=== PATIENT | female | born 2005 | race Caucasian/White ===

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

== ENCOUNTER 2023-04-06 04:32 | Inpatient (IN) ==
[2023-04-06] MEDS ORDERED: KETOROLAC TROMETHAMINE 15 MG/ML VIAL IV STA ×2 (04:50→09:19)
[2023-04-06] MEDS ORDERED: ONDANSETRON INJ 2 MG/ML 2 ML VIAL IV STA ×2 (04:50→07:31)
[2023-04-06] MEDS ORDERED: SODIUM CHLORIDE 0.9% 1000ML 1,000 ML IV STA (04:50)
--- NOTE | 2023-04-06 05:03 | Emergency Department Note ---
Impression & Plan Left flank pain, Left lower quadrant abdominal pain, Nausea & vomiting ED Provider Note CHIEF COMPLAINT: Left upper quadrant abdominal pain, nausea and vomit HISTORY OF PRESENT ILLNESS: This 17-year-old female patient presents to the emergency department via private vehicle for evaluation of left upper quadrant abdominal pain and nausea and vomiting. The patient states that symptoms began about 3 hours prior to arrival. She was awoken from sleep by the sudden onset of the left upper quadrant abdominal pain which radiates diffusely into the back. The patient states she is scheduled to have her gallbladder out in May, but notes this pain feels different than the pain she has experienced with her gallbladder. Patient denies any recent fever. She states she has been constipated, but notes her last bowel movement was yesterday. She has not taken any pain or nausea medication. She ate a hamburger and Scottish fries for dinner last night. The patient denies any chest pain or shortness of breath. She denies vomiting blood. She states she has been vomiting yellow bile recently. She denies any drug or alcohol use. REVIEW OF SYSTEMS: A 10 system review of systems was performed with positives and pertinent negatives listed in the history of present illness. All other sy stems were reviewed and are negative. ALLERGIES: Nickel PHYSICAL EXAM: VITALS: Vitals are noted on the nurse's note and reviewed by myself. Vital signs stable. GENERAL: This is a 17-year-old female, in no acute distress, diaphoretic, well- developed well-nourished. Patient is holding an emesis bag. SKIN: The skin was without rashes, erythema, edema, or bruising. There is no tenting of the skin. Capillary refill less than 2 seconds. HEAD: Normocephalic atraumatic. EYES: Conjunctivae without injection, sclerae without icterus. NECK: Supple without nuchal rigidity. No lymphadenopathy. No JVD. HEART: Regular rate and rhythm without murmurs gallops or rubs. LUNGS: Clear to auscultation bilaterally without wheezes, rales or rhonchi. No retractions or accessory muscle use. ABDOMEN: Positive bowel sounds x 4. Normal tympanic percussion. Left upper quadrant tenderness to palpation. There is some suprapubic tenderness to palpation as well. Positive left CVA tenderness. Abdomen is otherwise soft, nontender, without masses or organomegaly. Hardy sign negative. No guarding o r rebound tenderness. MUSCULOSKELETAL: No muscle atrophy, erythema, or edema noted. Full range of m otion without joint tenderness in all extremities. No tenderness to palpation. Normal gait. Strength 5/5 throughout. NEURO: Patient was alert and oriented to person place and time. No focal neurol ogical deficits. EMERGENCY DEPARTMENT COURSE: The patient was seen and evaluated as above. IV access obtained, labs drawn. Patient was medicated with IV Toradol, Zofran, IV fluids. Labs reviewed. Mild leukocytosis of 13,000. No anemia or thrombocytopenia. Renal, hepatic function and electrolytes without significant abnormality. Lipase 15. hCG negative. Previous medical records including outside medical records were reviewed. Patient complained of persistent vomiting and notes she has responded well to IM Phenergan in the past. This was administered. CT imaging was performed due to the complaint of left flank pain preceding the nausea and vomiting and reviewed by myself and radiologist as noted. Patient was found to have a 3 mm distal left ureteral stone. Urinalysis is still pending at shift change. The patient had experienced some mild improvement in her nausea and vomiting, but the nausea and vomiting returned. She states her pain has improved. She was given IV Benadryl and Zofran as well as an additional liter of IV fluids. The patient was signed out at shift change to Nichelle Durant PA-C awaiting urinalysis to evaluate for possible concurrent infection as well as reevaluation after the third dose of antiemetics. Please see Nichelle's dictation regarding final disposition and plan of this patient. Etiologies such as appendicitis, diverticulitis, nephrolithiasis, obstruction, inflammatory bowel disease, renal colic, PUD, biliary pathology, pancreatitis, mesenteric ischemia, aortic pathology, infections, genitourinary, UTI, perforated viscus, as well as others were entertained. I attest that I have personally reviewed the patient's current medication list. Blood Pressure Screening: Patient was found to have a slightly elevated blood pressure due to circumstances. I do not believe that the patient requires hypertension monitoring. The chart was completed utilizing [employer] voice recognition software. Grammatical errors, random word insertions, pronoun errors, and incomplete sentences are an occasional consequence of this system due to software limitations, ambient noise, and hardware issues. Any formal questions or concerns about the content, text, or information contained within the body of this dictation should be directly addressed to the provider for clarification. Past Med/Surg History Medical History Abnormal cholesterol test Abnormal weight gain Acute conjunctivitis ADD (attention deficit disorder) ADHD (attention deficit hyperactivity disorder) ADHD (attention deficit hyperactivity disorder), predominantly hyperactive impulsive type Adjustment disorder with depressed mood Allergic rhinitis Alopecia Cholelithiasis Constipation Depression Exercise-induced asthma Exercise-induced bronchospasm Gastroenteritis History of COVID-19 Covid positive Fall 2020 Covid positive 04/10/22 ([place]; [facility])- symptoms at time of sore throat and chest tightness, resolved 05/06/22 ([place]; [facility]) negative Insomnia Morbid obesity Nocturnal enuresis PMS (premenstrual syndrome) Shortness of breath Stress incontinence, female Surgical History (Updated 03/30/23 @ 11:08 by Azalia Thomas RN) H/O of nasal cauterization H/O wisdom tooth extraction History of repair of ACL History of tonsillectomy and adenoidectomy Family History (Updated 03/30/23 @ 11:06 by Azalia Thomas RN) Grandmother (Maternal) Breast cancer Cancer Grandfather (Maternal) Cancer Other No family history of adverse response to anesthesia Social History Smoking Status: Current every day smoker Tobacco Type: E-cigarettes / Vaping Second Hand Exposure: No; Do You Dip or Chew Tobacco: No; Hx Alcohol Use: Yes Hx Substance Use: Yes Preferred Language: Colombian Communication Ability: Effective Pail Bailer Required: No Beliefs That Will Affect Care: None Current Living Situation: Family Feels Safe at Home: Yes Assistive Devices: None Allergies Allergies Allergy/AdvReac Type Severity Reaction Status Date / Time nickel Allergy Intermediate skin Verified 03/30/23 11:02 irritation Home Meds Home Medications Medication Instructions Recorded Confirmed albuterol sulfate 90 mcg/actuation 2 inh inhalation Q4H PRN sob 10/06/21 03/30/23 aerosol inhaler duloxetine 30 mg capsule,delayed 30 mg PO DAILY 03/10/23 03/30/23 release Previous Rx's Medication Instructions Recorded amitriptyline 25 mg tablet 25 mg PO HS #14 tabs 03/10/23 ondansetron 4 mg disintegrating 4 mg PO Q4H PRN nausea and 03/10/23 tablet vomiting 0 days #10 tabs promethazine 25 mg tablet 25 mg PO Q6H PRN nausea and 03/10/23 vomiting #10 tabs pantoprazole 40 mg tablet,delayed 40 mg PO DAILY #30 tabs 03/12/23 release Results & Data (ED) Vital Signs Vital Signs - 24 hr 04/06/23 04:39 04/06/23 05:53 Temperature 36.3 C L Temperature Source Temporal Artery Scan Pulse Rate 87 Pulse Rate [Finger] 65 Respiratory Rate 18 18 Respiratory Effort / Characteristics Non-Labored Spontaneous Respiratory Depth Normal Respiratory Pattern Regular Blood Pressure 139/84 Blood Pressure [Right Arm] 108/70 Blood Pressure Mean 102 Blood Pressure Mean [Right Arm] 82 Pulse Oximetry 97 98 Oxygen Delivery Method Room Air Room Air Sepsis Recent Fever Within 48 Hours No Sepsis New/Unexplained Change in Mental Status No Sepsis Action Taken by Nursing No Action Required Laboratory Data 04/06/23 05:08 04/06/23 05:08 Lab Results 04/06/23 04/06/23 04/06/23 Range/Units 05:08 05:08 05:08 WBC 13.71 H (4.8-10.8) K/ul RBC 4.84 (4.20-5.40) M/uL Hgb 14.0 (12.0-16.0) g/dl Hct 40.5 (37.0-47.0) % MCV 83.7 (80.0-100.0) fL MCH 28.9 (25.0-34.0) pg MCHC 34.6 (32.0-36.0) g/dL RDW Std Deviation 37.9 (36.4-46.3) fL RDW Coeff of Any 12.5 (11.5-14.5) % Plt Count 490 H (130-400) K/uL MPV 9.5 (9.4-12.4) fL Immature Gran % (Auto) 0.3 % Neut % (Auto) 54.7 % Lymph % (Auto) 33.0 % [place] % (Auto) 9.3 % Eos % (Auto) 2.3 % Baso % (Auto) 0.4 % Neut # (Auto) 7.49 H (1.40-6.50) K/uL Lymph # (Auto) 4.53 H (1.2-3.4) K/uL [place] # (Auto) 1.28 H (0.11-0.59) K/uL Eos # (Auto) 0.31 (0-0.50) K/uL Baso # (Auto) 0.06 (0-0.2) K/uL Immature Gran # (Auto) 0.04 (0.01-0.20) K/uL Sodium 137 (136-145) mmol/L Potassium 3.1 L (3.5-5.1) mmol/L Chloride 104 (98-107) mmol/L Carbon Dioxide 23 (21-32) mmol/L Anion Gap 10 (3-11) BUN 11 (6-23) mg/dl Creatinine 0.68 (0.6-1.2) mg/dl Est Cr Clr Drug Dosing 137.4 ml/min Est GFR ( Amer) 147.0 ml/min Est GFR (Non-Af Amer) 126.8 ml/min BUN/Creatinine Ratio 16.2 (10-20) Glucose 124 H (70-99(Fasting)) mg/dl Calcium 9.6 (8.6-10.3) mg/dl Total Bilirubin 0.7 (0.2-1.0) mg/dl AST 16 (13-39) U/L ALT 8 (7-52) U/L Alkaline Phosphatase 57 (34-104) U/L Troponin I High Sens 3.5 (0-14) pg/ml Total Protein 7.7 (6.0-8.3) gm/dl Albumin 4.6 (3.4-5.0) gm/dl Globulin 3.1 (2.5-4.0) gm/dl Albumin/Globulin Ratio 1.5 (0.9-2) Lipase 15 (11-82) U/L HCG, Qual Negative (Negative) Administered Medications Discontinued Medications Sodium Chloride (Nss 1000ml) 1,000 mls @ 999 mls/hr IV .Q1H1M STA Stop: 04/06/23 05:50 Last Infusion: 04/06/23 06:34 Dose: 0 mls/hr Documented By: Admin: 04/06/23 05:06 Dose: 999 mls/hr Documented By: DALI Ketorolac Tromethamine (Ketorolac Tromethamine 15 Mg/Ml Vial) 10 mg IV NOW STA Stop: 04/06/23 04:51 Last Admin: 04/06/23 05:06 Dose: 10 mg Documented By: DALI Ondansetron HCl (Ondansetron Inj 2 Mg/Ml 2 Ml Vial) 4 mg IV NOW STA Stop: 04/06/23 04:51 Last Admin: 04/06/23 05:06 Dose: 4 mg Documented By: DALI Promethazine HCl (Promethazine Hcl Inj 25 Mg/Ml 1 Ml Vial) 25 mg IM NOW STA Stop: 04/06/23 05:43 Last Admin: 04/06/23 05:51 Dose: 25 mg Documented By: DALI Imaging Data Radiologist's Impression: Abdomen/Pelvis CT 04/06/23 04:[address] WITHOUT CONTRAST CT DOSE: 1323.36 mGy.cm HISTORY: left flank pain TECHNIQUE: Multiaxial CT images of the abdomen and pelvis were performed without contrast. A dose lowering technique was utilized adhering to the principles of ALARA. COMPARISON STUDY: Abdomen and pelvis CT 03/10/2023. FINDINGS: Stable 4 mm subpleural nodule within the right lower lobe on image 14 and 3 mm nodule within the left lower lobe on image 7. These are likely benign given the patient's age. No pneumoperitoneum. No pneumatosis. No acute fractures identified. The unenhanced liver, gallbladder, pancreas, spleen, adrenal glands unremarkable. There is a 3 mm stone within the right kidney. No left renal calculi. There is mild fullness within the left renal collecting system and left ureter secondary to a 3 mm partially obstructing stone within the distal left ureter on image 290. The bladder is decompressed. The uterus and ovaries are unremarkable. No retroperitoneal or pelvic lymphadenopathy. Trace pelvic free fluid. This is likely physiologic. Suboptimal evaluation for bowel pathology due to the lack of intravenous and oral contrast. However, there is no definite bowel wall thickening or obstruction. Normal appendix. Colonic diverticulosis. No evidence for acute diverticulitis. IMPRESSION: 1. A 3 mm partially obstructing stone within the distal left ureter resulting in mild fullness within the left renal collecting system. 2. Right-sided nephrolithiasis. 3. No bowel wall thickening or obstruction. 4. Additional findings as described above. ACT 112: Negative or not required by law. Electronically signed by: Aden Lowe M.D. 04/06/2023 7:23 AM Chest X-Ray 04/06/23 04:53 XR chest 1V portable CLINICAL HISTORY: Left upper quadrant pain. COMPARISON STUDY: Chest radiograph March 12, 2023. FINDINGS: Lung volumes are normal. Lungs are clear. There is no pneumothorax or pleural effusion. Cardiac size is normal. Mediastinal contours are normal. There is no evidence for pulmonary edema. IMPRESSION: No acute cardiopulmonary findings. ACT 112: Negative or not required by law. Electronically signed by: Jimmy Womack M.D. 04/06/2023 7:25 AM Discharge Plan Visit Data Chief Complaint: Abdominal Pain Stated Complaint: ABD PAIN,VOMITING ED Provider: Deniz Yee ED Midlevel Provider: Jen Molina Discharge Problem: Left flank pain, Left lower quadrant abdominal pain, Nausea & vomiting Forms Stand Alone Forms: [facility] Prescriptions Prescriptions: No Action albuterol sulfate 90 mcg/actuation HFA aerosol inhaler 2 inh INHALATION Q4H PRN (Reason: sob) duloxetine 30 mg capsule,delayed release(DR/EC) 30 mg PO DAILY amitriptyline 25 mg tablet 25 mg PO HS Qty: 14 0RF ondansetron 4 mg tablet,disintegrating 4 mg PO Q4H PRN (Reason: nausea and vomiting) Qty: 10 0RF promethazine 25 mg tablet 25 mg PO Q6H PRN (Reason: nausea and vomiting) Qty: 10 0RF pantoprazole 40 mg tablet,delayed release (DR/EC) 40 mg PO DAILY Qty: 30 0RF Referrals Referrals: Tin Ponce MD [Primary Care Provider] -
[2023-04-06 05:23] LABS: Basophils # (auto) 0.06 K/uL (0-0.2); Basophils % (auto) 0.4 %; Eosinophils # (auto) 0.31 K/uL (0-0.50); Eosinophils % (auto) 2.3 %; Hematocrit (blood only) 40.5 % (37.0-47.0); Immature Granulocytes # (auto) 0.04 K/uL (0.01-0.20); Immature Granulocytes % (auto) 0.3 %; Lymphocytes # (auto) 4.53 K/uL (1.2-3.4); Mean Corpuscular Hemoglobin 28.9 pg (25.0-34.0); Mean Corpuscular Hgb Conc 34.6 g/dL (32.0-36.0); Mean Corpuscular Volume 83.7 fL (80.0-100.0); Mean Platelet Volume 9.5 fL (9.4-12.4); Monocytes # (auto) 1.28 K/uL (0.11-0.59); Monocytes % (auto) 9.3 %; Neutrophils # (auto) 7.49 K/uL (1.40-6.50); Neutrophils % (auto) 54.7 %; Platelet Count 490 K/uL (130-400); RDW Coefficient of Variation 12.5 % (11.5-14.5); RDW Standard Deviation 37.9 fL (36.4-46.3); Red Blood Count 4.84 M/uL (4.20-5.40); White Blood Count 13.71 K/ul (4.8-10.8)
[2023-04-06 05:35] LABS: Pregnancy Test, Serum Negative (Negative)
[2023-04-06 05:40] LABS: Albumin Globulin Ratio 1.5 (0.9-2); Albumin Level 4.6 gm/dl (3.4-5.0); BUN Creatinine Ratio 16.2 (10-20); Bilirubin,Total 0.7 mg/dl (0.2-1.0); Calcium 9.6 mg/dl (8.6-10.3); Creatinine Clr Calc Pharmacy 137.4 ml/min; Est GFR (Non-African American) 126.8 ml/min; Globulin 3.1 gm/dl (2.5-4.0); Potassium 3.1 mmol/L (3.5-5.1); Total Protein 7.7 gm/dl (6.0-8.3)
[2023-04-06] MEDS ORDERED: PROMETHAZINE HCL INJ 25 MG/ML 1 ML VIAL IM STA (05:42)
[2023-04-06 05:46] LABS: Troponin I High Sensitivity 3.5 pg/ml (0-14)
--- NOTE | 2023-04-06 07:26 | XRay Report ---
XR chest 1V portable CLINICAL HISTORY: Left upper quadrant pain. COMPARISON STUDY: Chest radiograph March 12, 2023. FINDINGS: Lung volumes are normal. Lungs are clear. There is no pneumothorax or pleural effusion. Car diac size is normal. Mediastinal contours are normal. There is no evidence for pulmonary edema. IMPRESSION: No acute cardiopulmonary findings. ACT 112: Negative or not required by law. Electronically signed by: Jimmy Womack M.D. 04/06/2023 7:25 AM
--- NOTE | 2023-04-06 07:26 | CT Scan Report ---
ABDOMEN AND PELVIS CT WITHOUT CONTRAST CT DOSE: 1323.36 mGy.cm HISTORY: left flank pain TECHNIQUE: Multiaxial CT images of the abdomen and pelvis were performed without contrast. A dose lo wering technique was utilized adhering to the principles of ALARA. COMPARISON STUDY: Abdomen and pelvis CT 03/10/2023. FINDINGS: Stable 4 mm subpleural nodule within the right lower lobe on image 14 and 3 mm nodule withi n the left lower lobe on image 7. These are likely benign given the patient's age. No pneumoperitoneu m. No pneumatosis. No acute fractures identified. The unenhanced liver, gallbladder, pancreas, spleen , adrenal glands unremarkable. There is a 3 mm stone within the right kidney. No left renal calculi. There is mild fullness within the left renal collecting system and left ureter secondary to a 3 mm pa rtially obstructing stone within the distal left ureter on image 290. The bladder is decompressed. Th e uterus and ovaries are unremarkable. No retroperitoneal or pelvic lymphadenopathy. Trace pelvic irina e fluid. This is likely physiologic. Suboptimal evaluation for bowel pathology due to the lack of int ravenous and oral contrast. However, there is no definite bowel wall thickening or obstruction. Shannan l appendix. Colonic diverticulosis. No evidence for acute diverticulitis. IMPRESSION: 1. A 3 mm partially obstructing stone within the distal left ureter resulting in mild fullness within the left renal collecting system. 2. Right-sided nephrolithiasis. 3. No bowel wall thickening or obstruction. 4. Additional findings as described above. ACT 112: Negative or not required by law. Electronically signed by: Aden Lowe M.D. 04/06/2023 7:23 AM
[2023-04-06] MEDS ORDERED: ACETAMINOPHEN 1,000 MG/100 ML VIAL IV STA (07:31)
[2023-04-06] MEDS ORDERED: SODIUM CHLORIDE 0.9% 1000ML 1,000 ML IV ONE ×2 (07:31→10:09)
[2023-04-06] MEDS ORDERED: diphenhydrAMINE 50 MG/ML VIAL IV STA (07:31)
[2023-04-06 07:37] LABS: Appearance Urine Slightly Cloudy (Clear); Bilirubin Urine Negative (Negative); Blood Urine 3+ (Negative); Color Urine Yellow; Glucose Urine UA Negative (Negative); Ketones Urine 1+ (Negative); Leukocyte Esterase Urine Negative (Negative); Nitrite Urine Negative (Negative); Protein Urine 1+ (Negative); Specific Gravity Urine >= 1.030 (1.000-1.030); Urobilinogen Urine Negative (Negative); pH Urine 5.5 (4.5-7.5)
--- NOTE | 2023-04-06 07:43 | Emergency Department Note ---
ED Visit Note Patient signed out to me at shift change by Jen Molina PA-C pending urinalysis and improvement in condition. Please see her note for full HPI, h istory, physical exam and initial work-up and treatment. Briefly, this is a 17-year-old female who presented to the emergency department last evening for left upper quadrant abdominal pain and nausea/vomiting. Labs and imaging were performed and significant for mild leukocytosis of 13. CT of the abdomen and pelvis was performed due to left flank pain on exam. This demonstrated a 3 mm partially obstructing stone within the left distal ureter with mild fullness within the renal collecting system. Patient had received Zofran, Phenergan, Toradol initially. She persisted with vomiting as well as pain and was given IV Tylenol and more Zofran at time of signout. Urinalysis returned and demonstrated some protein, ketones and blood and +1 bacteria as well as epithelial cells. This is likely consistent with contamination however urine culture was sent. Upon my reevaluation, patient continues to dry heave and have significant nausea/vomiting as well as her pain is returning. Her pain has been adequately controlled with Toradol and Tylenol therefore she was given a second dose of Toradol. She was also given a dose of Compazine for her vomiting. Given intractable vomiting as well as kidney stone with mild hydronephrosis, I did feel admission to the hospital was warranted at this time. Patient was agreeable to this. Case was discussed with hospitalist, Dr. Mosher, who gracio usly excepted patient to his service for further management. Case was also discussed with Urology MANAGER [employer]ARAGE Heidy Rodríguez for patient's kidney stone. She reviewed case and recommended a dose of IV antibiotics pending urine culture for possible concurrent infection. They will follow her as inpatient as needed. Patient was updated on all these exam findings and recommendations. She was admitted in stable condition. .
[2023-04-06 07:55] LABS: Bacteria Urine 1+ (Negative); Calcium Oxalate Crystals Urine Present (None Prsent); Mucus Urine Present (None Prsent); WBC Urine 0-5 /hpf (0-5)
[2023-04-06 07:56] LABS: RBC Urine 0-4 /hpf (0-4)
[2023-04-06 08:12] LABS: Amphetamines+Metham, Urine Neg (Neg); Barbiturates, Urine Neg (Neg); Benzodiazepine, Urine Neg (Neg); Cocaine, Urine Neg (Neg); MDMA (Ecstacy), Urine Neg (Neg); Methadone, Urine Neg (Neg); Opiate, Urine Neg (Neg); Phencyclidine, Urine Neg (Neg)
[2023-04-06] MEDS ORDERED: PROCHLORPERAZINE 1 ML IV ONE (08:53)
[2023-04-06] MEDS ORDERED: cefTRIAXone SODIUM 2,000 MG/70 ML BAG IV STA (09:26)
[2023-04-06] MEDS ORDERED: TAMSULOSIN HCL 0.4 MG CAP PO STA (09:57)
[2023-04-06 10:29] LABS: Magnesium 1.8 mg/dl (1.7-2.4)
--- NOTE | 2023-04-06 10:37 | History & Physical Report ---
Date of Service April 06, 2023 Assessment & Plan (1) Ureterolithiasis: Plan: Admission due to inability to take oral intake with history of cyclic vomiting syndrome now exacerbated by ureterolithiasis Low suspicion UA is actually infected given short duration of symptoms but antibiotics requested by urology which seems reasonable pending urine culture results, continue ceftriaxone Tamsulosin 0.4mg PO now then daily Addition 1L NSS bolus now (total 3L) then D5 half NSS + 20 meq KCl at 125ml/hr Strain all urine, stone analysis if found Consult urology Pain control with acetaminophen 1st line, toradol 2nd line morphine 3rd line Nausea control with Phenergan (2) Hypokalemia: Plan: Potassium supplementation ordered. Suspect secondary to vomiting. Mg level check. Repeat K level with AM labs. Plan VTE Prophylaxis - low risk Diet - NPO, advance diet as tolerated Disposition - admit to med/surg Admission and Anticipated Discharge Date Admission Date: April 06, 2023 History of Present Illness Chief Complaint: Left abdominal pain Primary Care Provider: Tin Ponce MD Gertrude Worthy is a 17 year old female who presents to the ER with left abdominal and flank pain. Woke up from sleeping around 2am in severity 10/10 pain last night. No radiation. Not been able to keep anything down since with intractable nausea vomiting despite multiple anti-nausea medications given in the ER. Significant history of cyclic vomiting syndrome with current workup pending with EGD and possible cholecystectomy. Never had a kidney stone previously. No dysuria, change in urine frequency, color or smell. No fever or chills. Allergies Allergy/AdvReac Type Severity Reaction Status Date / Time nickel Allergy Intermediate skin Verified 03/30/23 11:02 irritation Home Medications Medication Instructions Recorded Confirmed Type albuterol sulfate 90 mcg/actuation 2 inh inhalation Q4H PRN sob 10/06/21 04/06/23 History aerosol inhaler amitriptyline 25 mg tablet 25 mg PO HS #14 tabs 03/10/23 04/06/23 Rx duloxetine 30 mg capsule,delayed 30 mg PO DAILY 03/10/23 04/06/23 History release ondansetron 4 mg disintegrating 4 mg PO Q4H PRN nausea and 03/10/23 04/06/23 Rx tablet vomiting 0 days #10 tabs promethazine 25 mg tablet 25 mg PO Q6H PRN nausea and 03/10/23 04/06/23 Rx vomiting #10 tabs pantoprazole 40 mg tablet,delayed 40 mg PO DAILY #30 tabs 03/12/23 04/06/23 Rx release Past Med/Surg History Medical History Abnormal cholesterol test Abnormal weight gain Acute conjunctivitis ADD (attention deficit disorder) ADHD (attention deficit hyperactivity disorder) ADHD (attention deficit hyperactivity disorder), predominantly hyperactive impulsive type Adjustment disorder with depressed mood Allergic rhinitis Alopecia Cholelithiasis Constipation Depression Exercise-induced asthma Exercise-induced bronchospasm Gastroenteritis History of COVID-19 Covid positive Fall 2020 Covid positive 04/10/22 ([place]; [facility])- symptoms at time of sore throat and chest tightness, resolved 05/06/22 ([place]; [facility]) negative Insomnia Morbid obesity Nocturnal enuresis PMS (premenstrual syndrome) Shortness of breath Stress incontinence, female Surgical History (Updated 03/30/23 @ 11:08 by Azalia Thomas RN) H/O of nasal cauterization H/O wisdom tooth extraction History of repair of ACL History of tonsillectomy and adenoidectomy Family History (Updated 03/30/23 @ 11:06 by Azalia Thomas RN) Grandmother (Maternal) Breast cancer Cancer Grandfather (Maternal) Cancer Other No family history of adverse response to anesthesia Social History Smoking Status: Current every day smoker Tobacco Type: E-cigarettes / Vaping Second Hand Exposure: No; Do You Dip or Chew Tobacco: No; Hx Alcohol Use: Yes Hx Substance Use: Yes Preferred Language: Mauritian Communication Ability: Effective Roper Operator Required: No Beliefs That Will Affect Care: None Current Living Situation: Family Feels Safe at Home: Yes Assistive Devices: None Review of Systems Review of Systems: All systems reviewed & are unremarkable except as noted in HPI & below Physical Exam Constitutional: WD/WN, vitals as above Eyes: + anicteric sclerae; normal pupil size Respiratory: normal respiratory effort, lungs clear to auscultation Cardiovascular: RRR, no murmur, no edema Gastrointestinal (Abdomen): Inspection/Auscultation: abdomen normal to inspection; abdomen not distended Percussion/Palpation: + abdomen tender (left sided) and abdomen soft; no guarding and abdomen not rigid Skin: no rashes, warm and dry Neurologic: moves all extremities and awake; not confused Psychiatric: A+Ox3, euthymic affect Genitourinary: + CVA tenderness (mild left) Results & Data Results & Data Vital Signs (Past 12 Hours) Vital Signs Temp Pulse Pulse Resp BP BP Pulse Ox 04/06/23 05:53 65 18 108/70 98 04/06/23 04:39 36.3 C L 87 18 139/84 97 O2 Del Method 04/06/23 05:53 Room Air 04/06/23 04:39 Room Air Laboratory Results Abnormal lab results 04/06/23 04/06/23 04/06/23 Range/Units 05:08 05:08 06:51 WBC 13.71 H (4.8-10.8) K/ul Plt Count 490 H (130-400) K/uL Neut # (Auto) 7.49 H (1.40-6.50) K/uL Lymph # (Auto) 4.53 H (1.2-3.4) K/uL Pitt # (Auto) 1.28 H (0.11-0.59) K/uL Potassium 3.1 L (3.5-5.1) mmol/L Glucose 124 H (70-99(Fasting)) mg/dl Urine Protein 1+ H (Negative) Urine Ketones 1+ H (Negative) Urine Blood 3+ H (Negative) Ur Epithelial Cells 10-20 H (0-5) /lpf Calcium Oxalate Crystal Present A (None Prsent) Urine Bacteria 1+ H (Negative) Urine Mucus Present A (None Prsent) U Marijuana (THC) Screen (Neg) 04/06/23 Range/Units 06:51 WBC (4.8-10.8) K/ul Plt Count (130-400) K/uL Neut # (Auto) (1.40-6.50) K/uL Lymph # (Auto) (1.2-3.4) K/uL Pitt # (Auto) (0.11-0.59) K/uL Potassium (3.5-5.1) mmol/L Glucose (70-99(Fasting)) mg/dl Urine Protein (Negative) Urine Ketones (Negative) Urine Blood (Negative) Ur Epithelial Cells (0-5) /lpf Calcium Oxalate Crystal (None Prsent) Urine Bacteria (Negative) Urine Mucus (None Prsent) U Marijuana (THC) Screen Pos H (Neg) Diagnostic Findings XR chest 1V portable CLINICAL HISTORY: Left upper quadrant pain. COMPARISON STUDY: Chest radiograph March 12, 2023. FINDINGS: Lung volumes are normal. Lungs are clear. There is no pneumothorax or pleural effusion. Cardiac size is normal. Mediastinal contours are normal. There is no evidence for pulmonary edema. IMPRESSION: No acute cardiopulmonary findings. ABDOMEN AND PELVIS CT WITHOUT CONTRAST CT DOSE: 1323.36 mGy.cm HISTORY: left flank pain TECHNIQUE: Multiaxial CT images of the abdomen and pelvis were performed without contrast. A dose lowering technique was utilized adhering to the principles of ALARA. COMPARISON STUDY: Abdomen and pelvis CT 03/10/2023. FINDINGS: Stable 4 mm subpleural nodule within the right lower lobe on image 14 and 3 mm nodule within the left lower lobe on image 7. These are likely benign given the patient's age. No pneumoperitoneum. No pneumatosis. No acute fractures identified. The unenhanced liver, gallbladder, pancreas, spleen, adrenal glands unremarkable. There is a 3 mm stone within the right kidney. No left renal calculi. There is mild fullness within the left renal collecting system and left ureter secondary to a 3 mm partially obstructing stone within the distal left ureter on image 290. The bladder is decompressed. The uterus and ovaries are unremarkable. No retroperitoneal or pelvic lymphadenopathy. Trace pelvic free fluid. This is likely physiologic. Suboptimal evaluation for bowel pathology due to the lack of intravenous and oral contrast. However, there is no definite bowel wall thickening or obstruction. Normal appendix. Colonic diverticulosis. No evidence for acute diverticulitis. IMPRESSION: 1. A 3 mm partially obstructing stone within the distal left ureter resulting in mild fullness within the left renal collecting system. 2. Right-sided nephrolithiasis. 3. No bowel wall thickening or obstruction. 4. Additional findings as described above. Medications Administered ER Medications Given: NSS 1L bolus Toradol 10mg IV Ondansetron 4mg IV Diphenhydramine 25mg IV Acetaminophen 1000mg IV NSS 1L bolus Compazine 5mg IV Code Status & VTE Plan Code Status Full VTE Prophylaxis Plan VTE Prophylaxis will be ordered: Yes PG Care Time/CCT Total # of Minutes Spent Total Time Spent with Patient: Total time spent is greater than 50% in coordination of care (as documented) at patient's floor/unit and/or counseling patient: Coding Level of Care Code 14088 INT INP/OBS CARE MIN Diagnoses Ureterolithiasis N20.1 Hypokalemia E87.6
[2023-04-06] MEDS: POTASSIUM CHLORIDE / WTR 10 MEQ/100 ML PLCT IV SCH ×2 (11:30→12:25)
--- NOTE | 2023-04-06 12:10 | Urology Consultation ---
Date of Consultation April 06, 2023 Assessment & Plan (1) Left flank pain: (2) Ureterolithiasis: (3) Nausea & vomitin-year-old female with history of cyclic vomiting syndrome now exacerbated by left distal ureteral stone admitted for intractable nausea and vomiting. She is afebrile and hemodynamically stable. Labs showWBC 13.71, normal creatinine. Urinalysis showed 1+ protein, 1+ ketones, 3+ blood, 0-4 RBC, 0-5 WBC, 10-20 epithelials, calcium oxalate crystals present and 1+ bacteria. Urine culture is pendingrecommend initiating broad-spectrum antibiotics and follow sensitivity data. CT independently reviewed and shows a 3 mm partially obstructing stone within the distal left ureter resulting in mild fullness within the left renal collecting system; right sided nephrolithiasis. We discussed options for stone management including left ureteral stent placement during admission versus trial of passage/medical expulsion therapy versus outpatient surgical options if symptoms are able to be controlled. We discussed that she has a decent probability of passing her stone spontaneously given size and location. Ureteral stents were discussed in detail. After discussion, patient would like to do a trial of passage. Okay to resume diet/oral fluids today. Recommend tamsulosin, IV fluids, oral hydration today as able, prn analgesia and anti-emetics. Strain all urine. Make NPO at midnight to reassess. Urology will follow, please consult our service urgently if patient becomes febrile or acute changes in status. History of Present Illness Reason for Consultation: ureterolithiasis Requesting Physician: Dr. Mosher Attending Physician: Dr. Mosher History of Present Illness This is a 17-year-old female with past medical history of ADHD, obesity, cyclical vomiting syndrome, and cholelithiasis who presented to the emergency department today for evaluation of abdominal pain, nausea and vomiting. On arrival, she was afebrile and hemodynamically stable. Lab work showed WBC 13.71, hemoglobin 14.0, creatinine 0.[address] abdomen and pelvis without contrast independently reviewed and notable for a 3 mm partially obstructing stone within the left distal ureter resulting in mild fullness within the left renal collecting system; right-sided nonobstructing nephrolithiasis. She was treated with IV fluids, ketorolac, ondansetron and promethazine in the emergency department. She was admitted for intractable nausea/vomiting despite multiple antinausea medications given in the ER. She has history of cyclic vomiting syndrome pending work-up with EGD and possible cholecystectomy. Patient seen and examined in the emergency department. She is awake and resting in litter, no apparent distress. Her grandmother present at bedside. She reports her left flank pain has improved since arrival, currently rated at 6/10 pain. Continues to have nausea and vomiting. Had episode of dry heaves during our interview. No dysuria or hematuria. Denies prior stone history. Family history of stonesfather. Allergies Allergy/AdvReac Type Severity Reaction Status Date / Time nickel Allergy Intermediate skin Verified 03/30/23 11:02 irritation Home Medications Medication Instructions Recorded Confirmed Type albuterol sulfate 90 mcg/actuation 2 inh inhalation Q4H PRN sob 10/06/21 04/06/23 History aerosol inhaler amitriptyline 25 mg tablet 25 mg PO HS #14 tabs 03/10/23 04/06/23 Rx duloxetine 30 mg capsule,delayed 30 mg PO DAILY 03/10/23 04/06/23 History release ondansetron 4 mg disintegrating 4 mg PO Q4H PRN nausea and 03/10/23 04/06/23 Rx tablet vomiting 0 days #10 tabs promethazine 25 mg tablet 25 mg PO Q6H PRN nausea and 03/10/23 04/06/23 Rx vomiting #10 tabs pantoprazole 40 mg tablet,delayed 40 mg PO DAILY #30 tabs 03/12/23 04/06/23 Rx release Patient History Medical History Abnormal cholesterol test Abnormal weight gain Acute conjunctivitis ADD (attention deficit disorder) ADHD (attention deficit hyperactivity disorder) ADHD (attention deficit hyperactivity disorder), predominantly hyperactive impulsive type Adjustment disorder with depressed mood Allergic rhinitis Alopecia Cholelithiasis Constipation Depression Exercise-induced asthma Exercise-induced bronchospasm Gastroenteritis History of COVID-19 Covid positive Fall 2020 Covid positive 04/10/22 ([place]; [facility])- symptoms at time of sore throat and chest tightness, resolved 05/06/22 ([place]; [facility]) negative Insomnia Morbid obesity Nocturnal enuresis PMS (premenstrual syndrome) Shortness of breath Stress incontinence, female Surgical History H/O of nasal cauterization H/O wisdom tooth extraction History of repair of ACL History of tonsillectomy and adenoidectomy Family History Grandmother (Maternal) Breast cancer Cancer Grandfather (Maternal) Cancer Other No family history of adverse response to anesthesia Social History Smoking Status: Current every day smoker Tobacco Type: E-cigarettes / Vaping Second Hand Exposure: No; Do You Dip or Chew Tobacco: No; Hx Alcohol Use: Yes Hx Substance Use: Yes Preferred Language: Kuwaiti Communication Ability: Effective Cork Sorter Required: No Beliefs That Will Affect Care: None Current Living Situation: Family Feels Safe at Home: Yes Assistive Devices: None Review of Systems Review of Systems: All systems reviewed & are unremarkable except as noted in HPI & below Physical Exam Constitutional: well developed and well nourished; no acute distress, not ill appearing and + uncomfortable Neck: normal visual inspection Respiratory: normal respiratory effort and able to speak in complete sentences; no respiratory distress and no labored breathing Cardiovascular: Extremities: no pedal edema Gastrointestinal (Abdomen): Inspection/Auscultation: abdomen normal to inspection; abdomen not distended Musculoskeletal: Head/Neck/Chest: normocephalic Neurologic: moves all extremities and awake Psychiatric: Orientation: alert and oriented x 3 Genitourinary: no CVA tenderness Results & Data Vital Signs (Past 12 Hours) Vital Signs Temp Pulse Pulse Resp BP BP Pulse Ox 04/06/23 05:53 65 18 108/70 98 04/06/23 04:39 36.3 C L 87 18 139/84 97 O2 Del Method 04/06/23 05:53 Room Air 04/06/23 04:39 Room Air PG Care Time/CCT Total # of Minutes Spent Total Time Spent with Patient: Total time spent is greater than 50% in coordination of care (as documented) at patient's floor/unit and/or counseling patient: Coding Level of Care Code 68839 OFFICE CONSULT LVL 40M Diagnoses Left flank pain R10.9 Ureterolithiasis N20.1 Nausea & vomiting R11.2
[2023-04-06] MEDS ORDERED: MoRPHine SULFATE 4 MG/ML 1 ML CARP\\VIAL IV PRN (13:28)
[2023-04-06] MEDS ORDERED: ACETAMINOPHEN 1,000 MG/100 ML VIAL IV PRN (13:28)
[2023-04-06] MEDS: D5W AND 1/2NSS + 20MEQ KCL 20 MEQ/1,000 ML BAG IV SCH ×2 (14:27→22:41)
[2023-04-06] MEDS: PANTOprazole 40 MG in SYRINGE 0 ML IV SCH (14:27)
[2023-04-06] MEDS: PROMETHAZINE HCL 25 MG in SODIUM CHLORIDE 0.9% 50 ML IV PRN ×2 (17:32→17:33)
[2023-04-06] MEDS: KETOROLAC TROMETHAMINE 15 MG/ML VIAL IV PRN (20:02)
[2023-04-06] MEDS ORDERED: AMITRIPTYLINE HCL 25 MG TAB PO SCH (21:00)
[2023-04-07] MEDS: PROMETHAZINE HCL 25 MG in SODIUM CHLORIDE 0.9% 50 ML IV PRN ×2 (02:56→09:13)
[2023-04-07] MEDS: D5W AND 1/2NSS + 20MEQ KCL 20 MEQ/1,000 ML BAG IV SCH (07:07)
[2023-04-07 07:35] LABS: Basophils # (auto) 0.02 K/uL (0-0.2); Basophils % (auto) 0.3 %; Eosinophils # (auto) 0.06 K/uL (0-0.50); Eosinophils % (auto) 0.8 %; Hematocrit (blood only) 35.4 % (37.0-47.0); Hemoglobin 11.9 g/dl (12.0-16.0); Immature Granulocytes # (auto) 0.02 K/uL (0.01-0.20); Immature Granulocytes % (auto) 0.3 %; Lymphocytes # (auto) 2.83 K/uL (1.2-3.4); Lymphocytes % (auto) 36.9 %; Mean Corpuscular Hemoglobin 28.8 pg (25.0-34.0); Mean Corpuscular Hgb Conc 33.6 g/dL (32.0-36.0); Mean Corpuscular Volume 85.7 fL (80.0-100.0); Mean Platelet Volume 9.7 fL (9.4-12.4); Monocytes % (auto) 9.1 %; Neutrophils # (auto) 4.04 K/uL (1.40-6.50); Neutrophils % (auto) 52.6 %; Platelet Count 304 K/uL (130-400); RDW Coefficient of Variation 12.6 % (11.5-14.5); RDW Standard Deviation 39.4 fL (36.4-46.3); Red Blood Count 4.13 M/uL (4.20-5.40); White Blood Count 7.67 K/ul (4.8-10.8)
[2023-04-07 07:49] LABS: Anion Gap 5 (3-11); BUN Creatinine Ratio 8.9 (10-20); Blood Urea Nitrogen 5 mg/dl (6-23); Calcium 8.8 mg/dl (8.6-10.3); Carbon Dioxide 25 mmol/L (21-32); Chloride 109 mmol/L (98-107); Creatinine Clr Calc Pharmacy 168.4 ml/min; Est GFR (African American) > 150.0 ml/min; Est GFR (Non-African American) 135.2 ml/min; Glucose 95 mg/dl (70-99(Fasting)); Potassium 3.5 mmol/L (3.5-5.1); Sodium 139 mmol/L (136-145)
--- NOTE | 2023-04-07 08:55 | Urology Progress Note ---
Date of Service April 07, 2023 Assessment & Plan (1) Ureterolithiasis: Plan: We reviewed the stone on her CT scan and that although it is small enough that it can likely pass spontaneously. She is still having pain requiring IV medications and severe nausea. We discussed options including ongoing trial of passage or surgical intervention with ureteroscopy, stone extraction and stent placement. We reviewed risks and benefits of each option. Regarding the surge ry, we specifically discussed risk of bleeding, infection, injury to the urinary tract, need for additional procedures. She expressed understanding and after discussion with her family, would like to proceed with surgery. Admission and Anticipated Discharge Date Admission Date: April 06, 2023 Subjective Feeling okay this morning, pain has improved from 9/10 to 5/10 -she reports still needing IV pain medication with this Still having some nausea requiring medication Denies fevers or chills Denies passage of the stone overnight Urine culture still pending Physical Exam Physical Exam: Well-appearing, NAD Results & Data Vital Signs (Past 12 Hours) Vital Signs Temp Pulse Resp BP Pulse Ox O2 Del Method 04/07/23 07:26 36.7 C 77 18 102/62 99 Room Air 04/06/23 22:30 37.1 C 75 17 100/63 98 Room Air PG Care Time/CCT Total # of Minutes Spent Total Time Spent with Patient: Total time spent is greater than 50% in coordination of care (as documented) at patient's floor/unit and/or counseling patient: Coding Level of Care Code 37130 SUB INP/OBS CARE 2/35MIN Diagnoses Ureterolithiasis N20.1
[2023-04-07] MEDS ORDERED: TAMSULOSIN HCL 0.4 MG CAP PO SCH (09:00)
[2023-04-07] MEDS ORDERED: DULoxetine HCL 30 MG CAP PO SCH (09:00)
[2023-04-07] MEDS ORDERED: cefTRIAXone SODIUM 2,000 MG in DEXTROSE 5% 50 ML IV SCH (09:00)
--- NOTE | 2023-04-07 09:22 | Anesthesiology Consultation ---
Date of Service April 07, 2023 Assessment & Plan Chart Review Chart Review: Acceptable Risk for Surgery and Patient NOT seen in Pre Admission Testing Consults Requested none ASA [id number] Proposed Anesthesia Anesthesia Type: General History Height/Weight Height: 5 ft 1 in Weight: 93.3 kg Allergies Allergy/AdvReac Type Severity Reaction Status Date / Time nickel Allergy Intermediate skin Verified 03/30/23 11:02 irritation Medications Home Medications Medication Instructions Recorded Confirmed Last Taken albuterol sulfate 90 mcg/actuation 2 inh inhalation Q4H PRN sob 10/06/21 04/06/23 03/07/23 aerosol inhaler amitriptyline 25 mg tablet 25 mg PO HS #14 tabs 03/10/23 04/06/23 04/05/23 duloxetine 30 mg capsule,delayed 30 mg PO DAILY 03/10/23 04/06/23 04/05/23 release ondansetron 4 mg disintegrating 4 mg PO Q4H PRN nausea and 03/10/23 04/06/23 04/05/23 tablet vomiting 0 days #10 tabs promethazine 25 mg tablet 25 mg PO Q6H PRN nausea and 03/10/23 04/06/23 04/05/23 vomiting #10 tabs pantoprazole 40 mg tablet,delayed 40 mg PO DAILY #30 tabs 03/12/23 04/06/23 04/05/23 release Active Medications Generic Name Dose Route Start Last Admin Trade Name Freq PRN Reason Stop Dose Admin Amitriptyline HCl 25 mg 04/06/23 21:00 04/06/23 19:59 Amitriptyline Hcl 25 Mg Tab PO 05/06/23 20:59 25 mg HS MARIA LUISA Administration Duloxetine HCl 30 mg 04/07/23 09:00 04/07/23 07:08 Duloxetine Hcl 30 Mg Cap PO 05/07/23 08:59 30 mg DAILY MARIA LUISA Administration Promethazine HCl 25 mg/ Sodium 51 mls @ 204 mls/hr 04/06/23 13:28 04/07/23 09:13 Chloride IV 05/06/23 13:27 204 mls/hr Q6H PRN Administration Nausea And Vomiting Ceftriaxone Sodium 2,000 mg/ 70 mls @ 100 mls/hr 04/07/23 09:00 04/07/23 07:53 Dextrose IV 04/12/23 08:59 Infused QAM MARIA LUISA Infusion Protocol Potassium Chloride/Dextrose/Sod Cl 20 meq in 1,000 mls @ 125 mls/hr 04/06/23 14:30 04/07/23 07:07 D5w And 1/2nss + 20meq Kcl IV 05/06/23 14:29 125 mls/hr .Q8H MARIA LUISA Administration Protocol Pantoprazole Sodium 40 mg/ 10 mls @ 5 mls/min 04/06/23 14:15 04/06/23 14:27 Syringe IV 05/06/23 14:14 5 mls/min DAILY@1100 MARIA LUISA Administration Ketorolac Tromethamine 15 mg 04/06/23 13:28 04/06/23 20:02 Ketorolac Tromethamine 15 Mg/Ml Vial IV 04/11/23 13:27 15 mg Q6H PRN Administration Pain Tamsulosin HCl 0.4 mg 04/07/23 09:00 04/07/23 07:08 Tamsulosin Hcl 0.4 Mg Cap PO 05/07/23 08:59 0.4 mg QAM MARIA LUISA Administration NPO Date Last Intake of Fluids: 04/07/23 Time Last Intake of Fluids: 05:30 Last Intake of Fluids Comment: meds w/sips water Date Last Intake of Solids: 04/05/23 Time Last Intake of Solids: 21:00 Past Medical History Medical History Abnormal cholesterol test Abnormal weight gain Acute conjunctivitis ADD (attention deficit disorder) ADHD (attention deficit hyperactivity disorder) ADHD (attention deficit hyperactivity disorder), predominantly hyperactive impulsive type Adjustment disorder with depressed mood Allergic rhinitis Alopecia Cholelithiasis Constipation Depression Exercise-induced asthma Exercise-induced bronchospasm Gastroenteritis History of COVID-19 Covid positive Fall 2020 Covid positive 04/10/22 ([place]; [facility])- symptoms at time of sore throat and chest tightness, resolved 05/06/22 ([place]; [facility]) negative Insomnia Morbid obesity Nocturnal enuresis PMS (premenstrual syndrome) Shortness of breath Stress incontinence, female Exercise / Class Metabolic Activity II 4-5 Yardwork/Stairs/Walk up hill Past Family History Family History Grandmother (Maternal) Breast cancer Cancer Grandfather (Maternal) Cancer Other No family history of adverse response to anesthesia Past Surgical History Surgical History H/O of nasal cauterization H/O wisdom tooth extraction History of repair of ACL History of tonsillectomy and adenoidectomy Past Anesthesia History No Hx of Anesthesia Complications and No Family Hx of Anesthesia Complications History of PONV No Hx of PONV and No Hx of Motion Sickness Social History Smoking Status: Current some day smoker tobacco type: e-cigarettes Do You Dip or Chew Tobacco: No Hx Alcohol Use: No alcohol intake frequency: holidays/special occasions only Hx Substance Use: Yes substance use type: marijuana Last Used Substance: Days (ago) Last Used Substance Other:: 2 days ago Physical Exam Vital Signs Last Vital Signs Temp 36.7 C 04/07/23 07:26 Pulse 77 04/07/23 07:26 Resp 18 04/07/23 07:26 BP 102/62 04/07/23 07:26 Pulse Ox 99 04/07/23 07:26 O2 Del Method Room Air 04/07/23 07:26 Testing Laboratory Results 04/07/23 07:11 04/07/23 07:11 Urine Color Yellow 04/06/23 06:51 Urine Appearance Slightly Cloudy (Clear) 04/06/23 06:51 Urine pH 5.5 (4.5-7.5) 04/06/23 06:51 Ur Specific [place] >= 1.030 (1.000-1.030) 04/06/23 06:51 Urine Protein 1+ (Negative) H 04/06/23 06:51 Urine Glucose (UA) Negative (Negative) 04/06/23 06:51 Urine Ketones 1+ (Negative) H 04/06/23 06:51 Urine Nitrite Negative (Negative) 04/06/23 06:51 Ur Leukocyte Esterase Negative (Negative) 04/06/23 06:51 Urine RBC 0-4 /hpf (0-4) 04/06/23 06:51 Urine WBC 0-5 /hpf (0-5) 04/06/23 06:51 Ur Epithelial Cells 10-20 /lpf (0-5) H 04/06/23 06:51 Electrocardiogram Date: 02/06/22 Findings: + NSR @ (@ 68 w/ marked SA) Chest X-Ray Date: 04/06/23 Findings: + NAD
[2023-04-07] MEDS ORDERED: fentaNYL citrate PF 100 MCG/2 ML VIAL IV PRN (09:59)
[2023-04-07] MEDS ORDERED: PROMETHAZINE HCL 12.5 MG in SODIUM CHLORIDE 0.9% 50 ML IV PRN (09:59)
[2023-04-07] MEDS ORDERED: LABETALOL HCL IV 5 MG/ML 20ML IV PRN (09:59)
[2023-04-07] MEDS ORDERED: FLUMAZENIL 0.1 MG/1 ML 10 ML VIAL IV PRN (09:59)
[2023-04-07] MEDS ORDERED: ATROPINE SULFATE 0.1 MG/ML 10ML SYR IV PRN (09:59)
[2023-04-07] MEDS ORDERED: ePHEDrine sulfate 50 MG/ML AMP IV PRN (09:59)
[2023-04-07] MEDS ORDERED: NALOXONE HCL 0.4 MG/1 ML VIAL/CARP IV PRN (09:59)
[2023-04-07] MEDS ORDERED: ONDANSETRON INJ 2 MG/ML 2 ML VIAL IV PRN (09:59)
[2023-04-07] MEDS ORDERED: DIATRIZOATE MEGLUMINE 30% 100ML VIAL INSTIL ONE (10:02)
[2023-04-07] MEDS ORDERED: PROPOFOL IV EMULSION 10 MG/ML 20 ML VIAL IV ONE ×2 (10:02→10:28)
[2023-04-07] MEDS ORDERED: fentaNYL citrate PF 100 MCG/2 ML VIAL ONE (10:02)
[2023-04-07] MEDS ORDERED: MIDAZOLAM HCL 1 MG/ML 2ML VIAL ONE (10:03)
--- NOTE | 2023-04-07 10:28 | Hospitalist Progress Note ---
Date of Service April 07, 2023 Assessment & Plan (1) Ureterolithiasis: Plan: Pt is a 17 yo female with PMH of cholelithiasis, ADHD, depression, and asthma presenting due to nausea/vomiting and abdominal pain. Left ureterolithiasis - CTAP: 3mm partially obstructing stone in distal left ureter, right sided stones - per uro, ceftriaxone ppx, pt to undergo stent placement today - continue tamsulosin 0.4mg daily - Pain control with acetaminophen, toradol, and morphine PRN - Nausea control with phenergan PRN Hypokalemia - suspect secondary to vomiting - present on admission- supplemented- recheck WNL - recheck with AM labs VTE ppx: low risk Diet: NPO Code: full Dispo: med/surg (2) Hypokalemia: Admission and Anticipated Discharge Date Admission Date: April 06, 2023 Results & Data Results & Data Vital Signs (Past 12 Hours) Vital Signs Temp Pulse Resp BP Pulse Ox O2 Del Method 04/07/23 07:26 36.7 C 77 18 102/62 99 Room Air 04/06/23 22:30 37.1 C 75 17 100/63 98 Room Air Resident Activity Tracking Resident Involvement: Resident Care Provided Care Provided: Adult Hospital Medicine
--- NOTE | 2023-04-07 10:51 | Operative Report ---
PG Post Operative Report Pre & Post Diagnosis Operation Date: 04/07/23 09:40 Pre-Op Diagnosis: Ureterolithiasis Post-Op Diagnosis: Ureterolithiasis I identified the patient and participated in the time-out.: Yes Procedure Operation Date: 04/07/23 09:40 Actual Procedures p Cystoscopy, Ureteronephroscopy, Extraction of Stone with Stent Insertion, Left - Sourav Tay MD Surgeon Sourav Tay MD Sanitation Lead None Estimated Blood Loss 0 Findings Consistent with Post-Op Diagnosis Specimens Left ureteral stone for analysis Drains 6 Luxembourgish by 24 cm double-J ureteral stent in the left ureter, strings attached to facilitate removal Anesthesia Type General Complications none Disposition Accompanied Patient To Recovery: Yes Disposition: Recovery Room Indications This is a 17-year-old female recently admitted to the hospital with left ureteral stones on CT scan as well as left-sided flank pain. Due to intractable pain, she is being brought to the OR for stone removal and stent placement. Description of Procedure The patient was identified in the holding area and informed consent was confirmed. She was marked on the left side, then was taken to the operating room where general anesthesia was initiated. She was placed in the dorsal lithotomy position with all pressure points appropriately padded. He was prepped and draped in the usual sterile fashion and a preoperative timeout was performed. A well-lubricated cystoscope was inserted per urethra and panendoscopy was performed. The urethra was normal with no strictures or mucosal abnormalities. Her bladder appeared grossly normal with no tumors or stones appreciated. Ureteral orifices were in orthotopic position bilaterally 5 [place]bourgish open-ended catheter was inserted through the cystoscope and used to guide a zip wire up the left ureter to the level of the kidney. Due to the small size of the stones, a retrograde pyelogram was deferred. Alongside the wire, I advanced a semirigid ureteroscope. A second wire was used to prop open the ureteral orifice. Immediately proximal to this, a cluster of small stones was identified. The Nitinol wire basket was then used to withdraw the stones to the level of the bladder. The remainder of the ureter was surveyed and no stones were identified. No stones been seen on CT scan in the [place]. At the conclusion of this, no stones were remaining in the ureter. The cystoscope was used to evacuate them from the bladder. The stones were collected and sent for chemical analysis. A 6 Luxembourgish x 24 centimeter double-J ureteral stent was advanced over the wire. When the wire was removed, the proximal curl was visualized in the kidney with x-ray, and the distal curl visualized in the bladder with the cystoscope. At this point the bladder was drained and all instrumentation was removed. The strings were left attached to the stent. The strings were secured to her right thigh using benzoin and a Tegaderm. The patient was then awakened from anesthesia and was brought to the PACU in stable condition. I attest to the content of the Intraoperative Record and any orders documented therein. Any exceptions are noted below.
--- NOTE | 2023-04-07 10:58 | Fluoroscopy Report ---
INTRAOPERATIVE RADIOGRAPH CLINICAL HISTORY: Left ureteral stent placement. Fluoro time: 4 seconds. Ka,r: 0.84 mGy FINDINGS: A single spot fluoroscopic view of the left upper quadrant is correlated with abdominal CT dated 04/06/2023. The image shows the proximal end of a left ureteral stent in appropriate position. IMPRESSION: Intraoperative image from a left ureteral stent placement procedure as above. Electronically signed by: Haroldo Oneil M.D. 04/07/2023 10:56 AM
--- NOTE | 2023-04-07 11:55 | Anesthesiology Progress Note ---
Date of Service April 07, 2023 Anesthesia Post Procedure Vital Signs Vital Signs: Temp Pulse Pulse Resp BP Pulse Ox Pulse Ox 04/07/23 11:52 36.7 C 76 16 122/75 100 04/07/23 11:30 36.9 C 82 16 123/73 98 04/07/23 11:20 67 14 113/62 100 04/07/23 11:10 73 12 120/85 98 04/07/23 11:00 36.1 C L 80 20 99/73 L 100 04/07/23 07:26 36.7 C 77 18 102/62 99 04/06/23 19:59 04/06/23 19:59 98 04/06/23 22:30 37.1 C 75 17 100/63 98 04/06/23 15:35 37.1 C 103 H 17 107/61 96 O2 Del Method O2 Del Method O2 Flow Rate 04/07/23 11:52 Room Air 04/07/23 11:30 Room Air 04/07/23 11:20 Room Air 04/07/23 11:10 Room Air 04/07/23 11:00 Oxymask 6 04/07/23 07:26 Room Air 04/06/23 19:59 Room Air 04/06/23 19:59 Room Air 04/06/23 22:30 Room Air 04/06/23 15:35 Room Air Pain Intensity Abdomen: Pain Intensity: 5 Transfer of Care Handoff Completed per policy Notes Mental Status: alert / awake / arousable Patient Amnestic to Procedure: Yes Nausea / Vomiting: adequately controlled Pain: adequately controlled Airway Patency, RR, SpO2: stable & adequate BP & HR: stable & adequate Hydration State: stable & adequate Anesthetic Complications: no major complications apparent
[2023-04-07] MEDS: PANTOprazole 40 MG in SYRINGE 0 ML IV SCH (12:01)
--- NOTE | 2023-04-07 12:41 | Discharge Summary ---
Date of Service April 07, 2023 Admission HPI Per Admitting Provider Gertrude Worthy is a 17 year old female who presents to the ER with left abdominal and flank pain. Woke up from sleeping around 2am in severity 10/10 pain last night. No radiation. Not been able to keep anything down since with intractable nausea vomiting despite multiple anti-nausea medications given in the ER. Significant history of cyclic vomiting syndrome with current workup pending with EGD and possible cholecystectomy. Never had a kidney stone previously. No dysuria, change in urine frequency, color or smell. No fever or chills. Admission Exam Per Admitting Provider Constitutional: WD/WN, vitals as above Eyes: + anicteric sclerae; normal pupil size Respiratory: normal respiratory effort, lungs clear to auscultation Cardiovascular: RRR, no murmur, no edema Gastrointestinal (Abdomen): Inspection/Auscultation: abdomen normal to inspection; abdomen not distended Percussion/Palpation: + abdomen tender (left sided) and abdomen soft; no guarding and abdomen not rigid Skin: no rashes, warm and dry Neurologic: moves all extremities and awake; not confused Psychiatric: A+Ox3, euthymic affect Genitourinary: + CVA tenderness (mild left) Principal Diagnosis left ureterolithiasis s/p stent Discharge Exam Constitutional: well appearing, no acute distress HEENT: normocephalic, no conjunctival injection CV: regular rhythm, regular rate, no murmur, no LE edema Respiratory: Clear to auscultation bilaterally. No rhonchi, wheezes, or crackles. No increased work of breathing GI: soft, nondistended, positive bowel sounds, tender upon palpation of LUQ and LLQ MSK: no gross deformities noted Skin: warm, dry, no rashes Neuro: alert, oriented, no FND noted Discharge Data Allergies Allergy/AdvReac Type Severity Reaction Status Date / Time nickel Allergy Intermediate skin Verified 03/30/23 11:02 irritation Consultations 04/06/23 09:13 ED Decision to Admit Stat 04/06/23 10:51 Consult Urology Routine Procedures Performed Operation Date: 04/07/23 09:40 Actual Procedures p Cystoscopy, Ureteronephroscopy, Basket Stone Extraction with Stent Insertion, Left (Not Applicable) - Sourav Tay MD Ordered Studies 04/06/23 04:50 CT abd pelvis wo con Stat IMPRESSION: 1. A 3 mm partially obstructing stone within the distal left ureter resulting in mild fullness within the left renal collecting system. 2. Right-sided nephrolithiasis. 3. No bowel wall thickening or obstruction. 4. Additional findings as described above. 04/07/23 FL KUB Routine IMPRESSION: Intraoperative image from a left ureteral stent placement procedure as above. Hospital Course (1) Ureterolithiasis: Pt is a 17 yo female with PMH of depression, cholelithiasis, and asthma presenting to the hospital due to vomiting/nausea and abdominal pain. Left ureterolithiasis s/p stenting - urology placed stent 04/07; pt given instructions to remove stent 04/09- pt unsure about her comfort level with removal; advised her to contact urology office for guidance - no further tamsulosin necessary - pt tolerating food w/o significant nausea prior to discharge; zofran PRN sent to pharmacy - would benefit from diet discussions to help prevent future stones Hypokalemia - suspect secondary to vomiting - repleted and recheck WNL VTE ppx: low risk Diet: regular Dispo: home (2) Hypokalemia: Total Time Total Time Spent Total Time Spent (In Minutes): <30 Discharge Plan Discharge Items Patient Disposition: Home - Self-Care Reason For Visit: URETEROLITHIASIS,INTRACTABLE NAUSEA AND VOMITING Discharge Diagnosis: ureterolithiasis s/p stent Activity: Per Instructions section Non-emergency contact: Primary Care Provider and Urologist Call non-emergency contact if: you have any medication questions, your symptoms worsen and your pain is not controlled Follow-up/Referrals: Sourav Tay MD [Physician] - (f/u left stent placement) Tin Ponce MD [Primary Care Provider] - Diet: Regular Addtl Attending Provider Instructions: A discharge summary will be sent to your primary care physician to ensure continuity of care. Please bring this discharge summary with you to your next office appointment so that your provider can review it at that time. Medications: Your medication list has been reviewed and reconciled upon discharge to ensure accuracy and continuity of care. An updated list of all your medications is included with your hospital discharge paperwork. Please review this list closely and make note of any changes to your medications. - You have been prescribed an antibiotic to take when you remove your stent. - You have also been prescribed nausea medication (zofran) to use as needed for severe nausea. Follow up appointments: - Make a follow up appointment with your PCP within the next week. It is very important that you follow up with them shortly after discharge from the hospital. - Keep all of your follow up appointments as already scheduled. If you cannot make an appointment, notify your provider. CONTACT YOUR PRIMARY CARE PROVIDER if you experience any of the following: - Difficulty following your treatment plan - Difficulty taking any of your medications CALL 911 OR GO TO THE EMERGENCY DEPARTMENT if you experience any of the following: - Sudden, severe abdominal pain or nausea/vomiting - Severe chest pain or chest pain that radiates to your jaw or arm - Sudden, severe shortness of breath or difficulty breathing Addtl [facility] Assistant Navigator Provider Instructions: The surgery you had was ureteroscopy with stone removal and stent placement. The stones were seen in the ureter and were removed with a basket. A stent was left with the strings attached. You can remove the stent on 04/09/2023 by gently pulling on the strings. Please take your dose of antibiotics 1 hour prior to removing the stent. Please take all medications as prescribed and keep all follow-ups as scheduled. Please call our office at [phone] with any questions, concerns or need to reschedule appointments for any reason. We are happy to assist you. Medications: please resume your normal medications as previously prescribed. You have been prescribed a single dose of antibiotics (Bactrim). Take this 1 hour prior to stent removal. For pain, it is ok to take tylenol alternating with ibuprofen. You can also take AZO, which can be purchased [id number] at the drugstore. Be aware th is turns your urine a bright orange color. If you are prescribed a stronger medication you can take this according to instructions on the label. What to expect after your ureteroscopy and stone removal procedure: You may notice small pieces of stone or stone dust/gravel in your urine over the next few days. Drink plenty of liquids to help flush your system. You may notice some blood in your urine. As long as you are able to urinate, this is ok. You have a ureteral stent in place - this will need to be removed. As long as the stent is in place, you may see some blood in the urine. You may have pain in your side when you urinate. Strings were left in place on the stent. You can remove the stent on 04/09/23. To do this, take your antibiotic, then after 1 hour, pull gently on the strings that are coming from your urethra. The stent is approximately 10 inches long. When to call [facility] at [phone]: Fever of 101F or higher Heavy bleeding Pain that is not controlled with medicine Uncontrolled vomiting Problems urinating or inability to urinate Pending Studies at Discharge: No Stand-Alone Forms: My [facility] [employer], Smoking Cessation Medications and DC Order Prescriptions: New sulfamethoxazole-trimethoprim [Bactrim DS] 800-160 mg tablet 1 tab PO ONCE 1 Days Qty: 1 0RF ondansetron 4 mg tablet,disintegrating 4 mg PO Q6 PRN (Reason: nausea and vomiting) Qty: 10 0RF Continued albuterol sulfate 90 mcg/actuation HFA aerosol inhaler 2 inh INHALATION Q4H PRN (Reason: sob) duloxetine 30 mg capsule,delayed release(DR/EC) 30 mg PO DAILY amitriptyline 25 mg tablet 25 mg PO HS Qty: 14 0RF ondansetron 4 mg tablet,disintegrating 4 mg PO Q4H PRN (Reason: nausea and vomiting) Qty: 10 0RF pantoprazole 40 mg tablet,delayed release (DR/EC) 40 mg PO DAILY Qty: 30 0RF Discontinued promethazine 25 mg tablet 25 mg PO Q6H PRN (Reason: nausea and vomiting) Qty: 10 0RF Discharge Orders: Discharge Order (Routine); Ordered 04/07/23 Ordered By: Tanya Martínez/Other Patient Handouts: Having a Ureteral Stent, Understanding Kidney Stones Admission Data Admit Date/Time: 04/06/23 10:13 Attending Provider: Deniz Abebe Admit Provider: Denny Mosher Primary Care Provider: Tin Ponce Other Providers: Denny oMsher ; Ryan Lawson Other Interventions: Discharge Summary Assessment (RN) Last Done: 04/07/23 15:28 Supervising Physician Co-Signing Physician Notes I personally examined the patient and verified all lopez points of history and exam, discussed case, and agree with decision making with Dr Julien Feeling better overall, feeling up to going home just wants to make sure she can eat okay first. Discussed kidney stone. Then discussed her chronic nauseashe is getting an upper GI/gallbladder work-up over the next few weeks . Vitals noted, in general she is awake and alert pleasant no distress. HEENT normocephalic atraumatic mucous membranes moist. Abdomen shows a left upper sort of subxiphoid trigger point that is fairly tender and possibly 1 on the right. Skin without rashes pallor or icterus. Ureterolithiasisstatus post cystoscopy and stenting, stable for home, outpat ient follow-up and management per urology chronic nauseadiscussed very likely multifactorial, discussed how her anxiety certainly still could be playing a role, discussed that upper GI pathology such as gallbladder issue certainly could play a role as well, discussed that with the presence of her abdominal wall trigger point, if she either is coming up empty on answers for why she is nauseated, or treatment does not seem to be helping as well as it should, I would then pursue trigger point injection. Several of the resident physicians at her PCPs office are comfortable performing abdominal wall trigger point injections, and she was made aware of this. Resident Activity Tracking Resident Involvement: Resident Care Provided Care Provided: Adult Hospital Medicine
[2023-04-07] MEDS: KETOROLAC TROMETHAMINE 15 MG/ML VIAL IV PRN (12:56)
--- NOTE | 2023-04-07 17:27 | Billing Data ---
Date of Service April 07, 2023 Coding Level of Care Code 98963 IN/OBS DISCH 30 MIN/LESS
[2023-04-07 23:33] LABS: Marijuana Quant, GCMS Urine >5000 ng/mL (<5)
== END 2023-04-07 16:26 | disposition home or self-care (01) | DRG 661 ==
LOC: ED 04:32 → SUATTDRO 10:13 → EDINP 10:13 → 3N 14:33

== ENCOUNTER 2025-09-25 09:33 | Observation (INO) ==
[2025-09-25] MEDS: ONDANSETRON INJ 2 MG/ML 2 ML VIAL IV STA (10:22)
[2025-09-25 10:47] LABS: Hematocrit (blood only) 41.6 % (37.0-47.0); Hemoglobin 14.4 g/dL (12.0-16.0); Immature Granulocytes # (auto) 0.05 K/uL (0.01-0.20); Immature Granulocytes % (auto) 0.3 %; Mean Corpuscular Hemoglobin 28.4 pg (25.0-34.0); Mean Corpuscular Volume 82.1 fL (80.0-100.0); Platelet Count 421 K/uL (130-400); RDW Standard Deviation 37.6 fL (36.4-46.3); Red Blood Count 5.07 M/uL (4.20-5.40); White Blood Count 14.75 K/ul (4.8-10.8)
[2025-09-25 11:03] LABS: Pregnancy Test, Serum Negative (Negative)
[2025-09-25] MEDS: KETOROLAC TROMETHAMINE 15 MG/ML VIAL IV ONE (11:06)
[2025-09-25] MEDS: PLASMA-LYTE A 1,000 ML IV ONE ×2 (11:06→12:10)
[2025-09-25 11:14] LABS: Alanine Aminotransferase 17.0 U/L (7-52); Albumin Globulin Ratio 1.3 (0.9-2); Albumin Level 4.7 gm/dl (3.4-5.0); Alkaline Phosphatase 69.0 U/L (34-104); Anion Gap 12.0 (3-11); Bilirubin,Total 0.4 mg/dl (0.2-1.0); Blood Urea Nitrogen 11.0 mg/dl (6-23); Calcium 9.6 mg/dl (8.6-10.3); Carbon Dioxide 21.0 mmol/L (21-32); Chloride 104.0 mmol/L (98-107); Creatinine Clr Calc Pharmacy 152.9 ml/min; Globulin 3.5 gm/dl (2.5-4.0); Glucose 149.0 mg/dl (70-99(Fasting)); Lipase 14.0 U/L (11-82); Potassium 3.7 mmol/L (3.5-5.1); Sodium 137.0 mmol/L (136-145); Total Protein 8.2 gm/dl (6.0-8.3)
[2025-09-25] MEDS: DROPERIDOL 5 MG/2 ML VIAL IV STA ×2 (11:22→13:18)
[2025-09-25] MEDS: ACETAMINOPHEN 1,000 MG/100 ML VIAL IV STA (12:09)
--- NOTE | 2025-09-25 12:09 | Emergency Department Note ---
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 Patient is accompanied by her family who provide additional history. Patient is reporting severe nausea, vomiting and diarrhea. This is in the setting of generalized abdominal pain. She states this is related to CVS. They deny fever or chills. No cough or congestion. Denies chest pain or palpitations. No shortness of breath. She denies the possibility of . No urinary complaints. No recent changes in bowel movements. Patient denies recent changes in medications or OTC supplements. Patient offers no other complaints, today. ADDITIONAL HISTORY OBTAINED: Per HPI Chronic Medical/Social Conditions Affecting Care: Per HPI PAST MEDICAL HISTORY: See Below PAST SURGICAL HISTORY: See Below FAMILY HISTORY: See Below SOCIAL HISTORY: See Below HOME MEDICATIONS: See Below ALLERGIES: See Below VITALS: See Below PHYSICAL EXAMINATION: GENERAL: Sitting up in bed, alert, ill appearing, well nourished, distress from severe symptoms, non-toxic EYE EXAM: normal conjunctiva. OROPHARYNX: no exudate, no erythema, lips, buccal mucosa, and tongue normal and mucous membranes are dry NECK: supple, no nuchal rigidity, no adenopathy, non-tender [] LUNGS: Clear to auscultation. Normal chest wall mechanics HEART: no murmurs, regular rate, regular rhythm ABDOMEN: abdomen soft, generalized TTP, no masses, no rebound or guarding. BACK: Back is symmetrical on inspection and there is no deformity, no midline tenderness, no CVA tenderness. SKIN: no rashes and no bruising UPPER EXTREMITIES: upper extremities are grossly normal. LOWER EXTREMITIES: No pitting edema. NEURO EXAM: Normal sensorium, GCS 15, normal speech, no gross weakness of arms, no gross weakness of legs. MEDICAL DECISION MAKING: Differential diagnoses includes but not limited to CVS, viral illness, electrolyte derangements, dehydration, appendicitis, bowel obstruction, diverticulitis, malignancy, nephrolithiasis, gastroenteritis, ACS, PNA, pancreatitis, hepatobiliary disease, UTI, STI, ovarian torsion, , PID, ovarian cyst, ovarian cyst rupture, vaginitis In summary, this is a 20 year old female who presented with CVS. Differential as above. Nursing notes and pertinent past medical records reviewed. Vital signs reviewed and the patient is afebrile and HDS. History and presentation revealed severe symptoms that the patient admits are similar to prior CVS. Physical examination revealed as above. As a result of my initial evaluation, IV access was established and the patient was placed on CCRM. Therapeutics ordered include IVFR, antiemetics and pain control. Diagnostics interpreted by me include EKG and cardiac monitoring as listed below: -Cardiac Monitoring: An order was placed for continuous cardiac monitoring. The monitor shows a rate of 50-100s with regular rhythm. -ECG: Normal sinus rhythm at ventricular rate of 76 bpm. 1 supraventricular complexes appears premature. Patient's QTc is 432ms. No significant ST segment changes to suggest STEMI. Patient completed laboratory studies and imaging. Results independently interpreted by me are mild leukocytosis that is likely reactive. No anemia. There is no significant electrolyte derangements or significant kidney dysfunction from baseline. No changes in LFTs. Negative . The patient was managed with IVFR, Fentanyl, Droperidol and further analgesia. Symptoms were ongoing and CT was ordered. No acute surgical pathology found. Patient has no patient's symptoms today and presentation are likely related to cyclic vomiting syndrome complicated by a viral illness. Patient days after nausea and abdominal pain have been intractable. Patient uncomfortable going home if she is unable to tolerate p.o. intake. Will admit to the hospital. Ultimately, the decision was made to admit the patient for intractable nausea in the setting of vomiting likely viral in the setting of cyclic vomiting syndrome. I discussed the case with the hospitalist service via telephone/TigerText and they are agreeable to admit the patient to their services. Based on the above, including the patient's age, coexisting illnesses, labs, imaging, and exam findings the decision to treat as an inpatient. I discussed the patient with the hospitalist team who recommended admission to their services. They received the medications, treatments, interventions indicated above and their condition remained stable. I discussed my findings with the patient and their family and they understand and agree with the treatment plan. All patient / family questions were answered to their satisfaction. Consults/Care Managements Discussions: Per MDM ER treatment provided: See above Procedures: None Critical Care: None The chart was completed utilizing [employer] Speech voice recognition software. Grammatical errors, random word insertions, pronoun errors, and incomplete sentences are an occasional consequence of this system due to software limitations, ambient noise, and hardware issues. Any formal questions or concerns about the content, text, or information contained within the body of this dictation should be directly addressed to the physician for clarification. Past Med/Surg History Problem List (Updated 09/27/25 @ 20:02 by Jayv Pierre DO) Intractable nausea and vomiting (Acute) Intractable abdominal pain (Acute) Viral illness (Acute) Cyclic vomiting syndrome (Acute) Vomiting (Acute) Diarrhea (Acute) Abdominal pain (Acute) Umbilical hernia Lower urinary tract symptoms (LUTS) (Acute) Hemorrhoids Thyroid nodule Abnormal thyroid blood test High serum cortisol Encounter for IUD insertion Dysmenorrhea Post-op pain Right upper quadrant abdominal pain (Acute) Gallstones Nephrolithiasis (Chronic) Seizure-like activity Seizure-like activity + LOC episode 05/07/23, unknown etiology (did not got to hospital, reportedly lasted approximately 15 seconds. Patient states she notified PCP/had office visit 05/12/23 in which patient was referred to [facility] neurology (appt not done yet) Cholelithiasis (Acute) Morbid obesity Viral upper respiratory infection (Acute) Upper respiratory infection (Acute) Diarrhea in pediatric patient (Acute) Diarrhea (Acute) Cough (Acute) Contusion of foot (Acute) Constipation (Acute) Blood on toilet paper (Acute) Abdominal pain in female patient (Acute) ADD (attention deficit disorder) (Chronic) ADHD (attention deficit hyperactivity disorder) (Chronic) Medical History (Updated 09/27/25 @ 20:02 by Javy Pierre DO) Encounter for pre-operative examination Kidney stone Cyclic vomiting syndrome Nausea and vomiting after administration of anesthetic agent after ACL sx only ADHD (attention deficit hyperactivity disorder) no meds currently Hx of bronchitis dx mid September 2024, tx w/abx and OTC meds; cough lingering currently (as of 11/03/24) Seizure-like activity Seizure-like activity + LOC episode 05/07/23, unknown etiology (did not got to hospital, reportedly lasted approximately 15 seconds. Patient states she notified PCP/had office visit 05/12/23 in which patient was referred to [facility] neurology > "cleared by the dr, no recurrence of symptoms" IUD (intrauterine device) in place Ovarian cyst right side, current History of renal stone Depression Constipation "just a little bit" Stress incontinence, female PMS (premenstrual syndrome) resolved w/kyleena Nocturnal enuresis Insomnia Gastroenteritis "sort of ongoing process" Alopecia Allergic rhinitis Adjustment disorder with depressed mood Exercise-induced asthma inh prn History of COVID-19 Fall 04/2022- sore throat, chest tightness, resolved Surgical History (Updated 07/26/25 @ 08:39 by Mk He PA-C) Hx laparoscopic cholecystectomy (08/04/23) Laparoscopic Cholecystectomy(Not Applicable) - Garcia Stout, H/O adenoidectomy Hx laparoscopic cholecystectomy Laparoscopic Cholecystectomy(Not Applicable) - Garcia Stout, History of esophagogastroduodenoscopy (EGD) EGD (04/28/23): MAC at [facility] History of arthroscopy of left knee 05/2022, w/ACL reconstruction S/P cystoscopy with ureteral stent placement Cystoscopy, left ureteroscopy, stent (04/07/23): LMA#4 igel at [facility] H/O wisdom tooth extraction History of tonsillectomy and adenoidectomy H/O of nasal cauterization age 3 Family History Grandmother (Maternal) Breast cancer Cancer Grandfather (Maternal) Cancer Other No family history of adverse response to anesthesia Social History Smoking Status: Current every day smoker Tobacco Type: E-cigarettes / Vaping Cigarettes Per Day: vapes daily (advised on policy); Second Hand Exposure: Yes (hx growing up); Do You Dip or Chew Tobacco: No; Hx Alcohol Use: Yes Alcohol type: hard liquor Hx Substance Use: No Preferred Language: Vietnamese Communication Ability: Effective Visual Impairment: No Limitations Planer Feeder Required: No Beliefs That Will Affect Care: None Current Living Situation: Family Feels Safe at Home: Yes Assistive Devices: Glasses Allergies Allergies Allergy/AdvReac Type Severity Reaction Status Date / Time nickel Allergy Intermediate skin Verified 09/04/25 13:23 irritation Home Meds Home Medications Medication Instructions Recorded Confirmed diphenhydramine HCl 25 mg capsule 25 mg PO DAILY PRN Allergy Symptoms 12/13/23 09/25/25 (Benadryl) levonorgestrel 17.5 mcg/24 hr (up 1 device intrauterine DIRECTED 05/09/24 09/25/25 to 5 yrs) 19.5mg intrauterine device (Kyleena) amitriptyline 25 mg tablet 75 mg PO HS 09/05/24 09/25/25 Medical Marijuana 1 dose inhalation UD PRN Anxiety 09/29/24 09/25/25 Previous Rx's Medication Instructions Recorded albuterol sulfate 90 mcg/actuation 2 puff inhalation Q6H PRN 10/26/24 aerosol inhaler shortness of breath or wheezing #8.5 grams ondansetron 8 mg disintegrating 8 mg PO Q8H PRN nausea and 08/01/25 tablet vomiting #30 tabs Results & Data (ED) Vital Signs Vital Signs - 24 hr 09/25/25 09:47 09/25/25 10:46 09/25/25 11:12 Temperature 36.5 C Temperature Source Temporal Artery Scan Pulse Rate 95 H 81 70 Pulse Rate [Apical] Pulse Rate from SpO2 Sensor 71 Respiratory Rate 16 18 Respiratory Effort / Characteristics Non-Labored Respiratory Depth Normal Respiratory Pattern Regular Blood Pressure 114/80 107/75 Blood Pressure [Right Arm] Blood Pressure Mean 91 85 Blood Pressure Mean [Right Arm] Pulse Oximetry 97 99 Oxygen Delivery Method Room Air Room Air Sepsis Recent Fever Within 48 Hours No Sepsis New/Unexplained Change in Mental Status N/A Sepsis Action Taken by Nursing No Action Required 09/25/25 11:22 09/25/25 11:30 09/25/25 11:45 Temperature Temperature Source Pulse Rate 56 L 71 Pulse Rate [Apical] Pulse Rate from SpO2 Sensor 58 L 69 Respiratory Rate 19 21 Respiratory Effort / Characteristics Respiratory Depth Respiratory Pattern Blood Pressure 125/61 103/63 109/80 Blood Pressure [Right Arm] Blood Pressure Mean 97 76 89 Blood Pressure Mean [Right Arm] Pulse Oximetry 98 100 Oxygen Delivery Method Room Air Room Air Sepsis Recent Fever Within 48 Hours Sepsis New/Unexplained Change in Mental Status Sepsis Action Taken by Nursing 09/25/25 12:00 09/25/25 12:15 09/25/25 12:21 Temperature Temperature Source Pulse Rate 83 104 H Pulse Rate [Apical] Pulse Rate from SpO2 Sensor 89 Respiratory Rate 26 H 24 Respiratory Effort / Characteristics Respiratory Depth Respiratory Pattern Blood Pressure 114/71 143/66 H 101/48 L Blood Pressure [Right Arm] Blood Pressure Mean 85 91 86 Blood Pressure Mean [Right Arm] Pulse Oximetry 100 99 Oxygen Delivery Method Room Air Room Air Sepsis Recent Fever Within 48 Hours Sepsis New/Unexplained Change in Mental Status Sepsis Action Taken by Nursing 09/25/25 12:22 09/25/25 12:23 09/25/25 12:30 Temperature Temperature Source Pulse Rate 73 Pulse Rate [Apical] Pulse Rate from SpO2 Sensor 75 Respiratory Rate 25 H Respiratory Effort / Characteristics Respiratory Depth Respiratory Pattern Blood Pressure 98/52 L 118/55 L 116/76 Blood Pressure [Right Arm] Blood Pressure Mean 68 87 89 Blood Pressure Mean [Right Arm] Pulse Oximetry 98 Oxygen Delivery Method Room Air Sepsis Recent Fever Within 48 Hours Sepsis New/Unexplained Change in Mental Status Sepsis Action Taken by Nursing 09/25/25 12:30 09/25/25 13:17 09/25/25 13:18 Temperature Temperature Source Pulse Rate 74 Pulse Rate [Apical] 75 Pulse Rate from SpO2 Sensor 72 Respiratory Rate 24 24 Respiratory Effort / Characteristics Respiratory Depth Respiratory Pattern Blood Pressure 116/76 130/82 Blood Pressure [Right Arm] 130/82 Blood Pressure Mean 84 98 Blood Pressure Mean [Right Arm] 98 Pulse Oximetry 99 99 Oxygen Delivery Method Room Air Room Air Sepsis Recent Fever Within 48 Hours Sepsis New/Unexplained Change in Mental Status Sepsis Action Taken by Nursing 09/25/25 13:30 09/25/25 14:33 09/25/25 14:42 Temperature Temperature Source Pulse Rate 85 74 74 Pulse Rate [Apical] Pulse Rate from SpO2 Sensor 80 74 Respiratory Rate 21 12 31 H Respiratory Effort / Characteristics Respiratory Depth Respiratory Pattern Blood Pressure 134/80 120/85 Blood Pressure [Right Arm] Blood Pressure Mean 98 96 Blood Pressure Mean [Right Arm] Pulse Oximetry 100 95 99 Oxygen Delivery Method Room Air Room Air Room Air Sepsis Recent Fever Within 48 Hours Sepsis New/Unexplained Change in Mental Status Sepsis Action Taken by Nursing 09/25/25 14:45 09/25/25 14:49 09/25/25 15:00 Temperature Temperature Source Pulse Rate 75 73 104 H Pulse Rate [Apical] Pulse Rate from SpO2 Sensor 80 108 H Respiratory Rate 28 H 28 H Respiratory Effort / Characteristics Respiratory Depth Respiratory Pattern Blood Pressure 115/71 104/75 Blood Pressure [Right Arm] Blood Pressure Mean 85 84 Blood Pressure Mean [Right Arm] Pulse Oximetry 98 100 Oxygen Delivery Method Room Air Room Air Sepsis Recent Fever Within 48 Hours Sepsis New/Unexplained Change in Mental Status Sepsis Action Taken by Nursing 09/25/25 15:15 09/25/25 15:30 09/25/25 15:30 Temperature Temperature Source Pulse Rate 67 76 Pulse Rate [Apical] Pulse Rate from SpO2 Sensor 70 83 Respiratory Rate 24 35 H Respiratory Effort / Characteristics Respiratory Depth Respiratory Pattern Blood Pressure 129/78 130/71 130/71 Blood Pressure [Right Arm] Blood Pressure Mean 95 90 96 Blood Pressure Mean [Right Arm] Pulse Oximetry 99 98 Oxygen Delivery Method Room Air Room Air Sepsis Recent Fever Within 48 Hours Sepsis New/Unexplained Change in Mental Status Sepsis Action Taken by Nursing 09/25/25 15:45 Temperature Temperature Source Pulse Rate 81 Pulse Rate [Apical] Pulse Rate from SpO2 Sensor 81 Respiratory Rate 16 Respiratory Effort / Characteristics Respiratory Depth Respiratory Pattern Blood Pressure 130/85 Blood Pressure [Right Arm] Blood Pressure Mean 100 Blood Pressure Mean [Right Arm] Pulse Oximetry 99 Oxygen Delivery Method Room Air Sepsis Recent Fever Within 48 Hours Sepsis New/Unexplained Change in Mental Status Sepsis Action Taken by Nursing Laboratory Data 09/26/25 09:36 09/26/25 09:36 Lab Results 09/25/25 09/25/25 Range/Units 10:22 13:01 WBC 14.75 H (4.8-10.8) K/ul RBC 5.07 (4.20-5.40) M/uL Hgb 14.4 (12.0-16.0) g/dL Hct 41.6 (37.0-47.0) % MCV 82.1 (80.0-100.0) fL MCH 28.4 (25.0-34.0) pg MCHC 34.6 (32.0-36.0) g/dL RDW Std Deviation 37.6 (36.4-46.3) fL RDW Coeff of Any 12.7 (11.5-14.5) % Plt Count 421 H (130-400) K/uL MPV 9.4 (9.4-12.4) fL Immature Gran % (Auto) 0.3 % Neut % (Auto) 77.0 % Lymph % (Auto) 16.1 % [place] % (Auto) 5.1 % Eos % (Auto) 1.2 % Baso % (Auto) 0.3 % Neut # (Auto) 11.35 H (1.40-6.50) K/uL Lymph # (Auto) 2.38 (1.20-3.40) K/uL [place] # (Auto) 0.75 H (0.11-0.59) K/uL Eos # (Auto) 0.17 (0.00-0.50) K/uL Baso # (Auto) 0.05 (0.00-0.20) K/uL Immature Gran # (Auto) 0.05 (0.01-0.20) K/uL Sodium 137 (136-145) mmol/L Potassium 3.7 (3.5-5.1) mmol/L Chloride 104 (98-107) mmol/L Carbon Dioxide 21 (21-32) mmol/L Anion Gap 12 H (3-11) BUN 11 (6-23) mg/dl Creatinine 0.63 (0.6-1.2) mg/dl Est Cr Clr Drug Dosing 152.9 ml/min eGFR 128.55 BUN/Creatinine Ratio 17.5 (10-20) Glucose 149 H (70-99(Fasting)) mg/dl Calcium 9.6 (8.6-10.3) mg/dl Total Bilirubin 0.4 (0.2-1.0) mg/dl AST 22 (13-39) U/L ALT 17 (7-52) U/L Alkaline Phosphatase 69 (34-104) U/L Total Protein 8.2 (6.0-8.3) gm/dl Albumin 4.7 (3.4-5.0) gm/dl Globulin 3.5 (2.5-4.0) gm/dl Albumin/Globulin Ratio 1.3 (0.9-2) Lipase 14 (11-82) U/L HCG, Qual Negative (Negative) Urine Color Yellow Urine Appearance Clear (Clear) Urine pH 8.0 H (4.5-7.5) Ur Specific [place] 1.032 H (1.000-1.030) Urine Protein Negative (Negative) Urine Glucose (UA) Negative (Negative) Urine Ketones 1+ H (Negative) Urine Blood Trace H (Negative) Urine Nitrite Negative (Negative) Urine Bilirubin Negative (Negative) Urine Urobilinogen Negative (Negative) Ur Leukocyte Esterase Negative (Negative) Urine WBC (Auto) 0-5 (0-5) /hpf Urine RBC (Auto) 0-2 (0-2) /hpf U Hyaline Cast (Auto) 0-2 (0-2) /lpf U Epithel Cells (Auto) 3-5 H (0-2) /hpf Urine Bacteria (Auto) 2+ H (None Seen) Urine Comment Administered Medications Discontinued Medications Acetaminophen (Acetaminophen 325 Mg Tab) 650 mg PO Q4H PRN PRN Reason: pain/fever Stop: 10/25/25 15:55 Last Admin: 09/26/25 04:50 Dose: 650 mg Documented By: HFW Amitriptyline HCl (Amitriptyline Hcl 25 Mg Tab) 75 mg PO HS MARIA LUISA Stop: 10/25/25 20:59 Last Admin: 09/25/25 22:32 Dose: 75 mg Documented By: HFW Droperidol (Droperidol 5 Mg/2 Ml Vial) 1.25 mg IV ONE STA Stop: 09/25/25 11:07 Last Admin: 09/25/25 11:22 Dose: 1.25 mg Documented By: mbu Droperidol (Droperidol 5 Mg/2 Ml Vial) 1.25 mg IV ONE STA Stop: 09/25/25 13:04 Last Admin: 09/25/25 13:18 Dose: 1.25 mg Documented By: CHELITA Fentanyl Citrate (Fentanyl Citrate Pf 100 Mcg/2 Ml Vial) 50 mcg IV NOW ONE Stop: 09/25/25 11:07 Last Admin: 09/25/25 11:21 Dose: 50 mcg Documented By: mbu Fentanyl Citrate (Fentanyl Citrate Pf 100 Mcg/2 Ml Vial) 50 mcg IV NOW ONE Stop: 09/25/25 12:10 Last Admin: 09/25/25 12:20 Dose: 50 mcg Documented By: mbu Parenteral Electrolytes (Plasma-Lyte A Ph 7.4) 1,000 mls @ 999 mls/hr IV .Q1H1M ONE Stop: 09/25/25 11:56 Last Infusion: 09/25/25 12:13 Dose: Infused Documented By: mbu Admin: 09/25/25 11:06 Dose: 999 mls/hr Documented By: mbu Parenteral Electrolytes (Plasma-Lyte A Ph 7.4) 1,000 mls @ 999 mls/hr IV .Q1H1M ONE Stop: 09/25/25 13:02 Last Infusion: 09/25/25 14:29 Dose: Infused Documented By: mbu Admin: 09/25/25 12:10 Dose: 999 mls/hr Documented By: eli Acetaminophen (Ofirmev) 1,000 mg in 100 mls @ 400 mls/hr IV NOW STA Stop: 09/25/25 12:18 Last Infusion: 09/25/25 12:36 Dose: Infused Documented By: mainoru Admin: 09/25/25 12:09 Dose: 400 mls/hr Documented By: eli Sodium Chloride (Nss) 1,000 mls @ 125 mls/hr IV .Q8H MARIA LUISA Stop: 09/28/25 15:59 Last Infusion: 09/26/25 14:05 Dose: Infused Documented By: Admin: 09/26/25 09:57 Dose: 125 mls/hr Documented By: Infusion: 09/26/25 09:54 Dose: Infused Documented By: Admin: 09/26/25 01:54 Dose: 125 mls/hr Documented By: Infusion: 09/26/25 00:57 Dose: Infused Documented By: Admin: 09/25/25 16:57 Dose: 125 mls/hr Documented By: eli Pantoprazole Sodium (Protonix) 40 mg in 10 mls @ 5 mls/min IV DAILY@0900 MARIA LUISA Stop: 10/25/25 18:59 Last Admin: 09/26/25 08:21 Dose: 5 mls/min Documented By: Admin: 09/25/25 18:42 Dose: 5 mls/min Documented By: GLENN Famotidine (Pepcid 20mg Iv Push) 20 mg in 5 mls @ 2.5 mls/min IV NOW STA Stop: 09/25/25 20:25 Last Admin: 09/25/25 23:18 Dose: 2.5 mls/min Documented By: SHAHLAW Ioversol (Optiray 320 100ml) 94 ml IV ONCE ONE Stop: 09/25/25 12:45 Last Admin: 09/25/25 12:44 Dose: 94 ml Documented By: ANNF Ketorolac Tromethamine (Ketorolac Tromethamine 15 Mg/Ml Vial) 10 mg IV NOW ONE Stop: 09/25/25 10:57 Last Admin: 09/25/25 11:06 Dose: 10 mg Documented By: eli Metoclopramide HCl (Metoclopramide Hcl Inj 5 Mg/Ml 2 Ml Vial) 10 mg IV Q6H MARIA LUISA Stop: 10/25/25 16:14 Last Admin: 09/26/25 09:58 Dose: 10 mg Documented By: Admin: 09/26/25 04:09 Dose: 10 mg Documented By: Admin: 09/25/25 22:32 Dose: 10 mg Documented By: Admin: 09/25/25 16:57 Dose: 10 mg Documented By: eli Morphine Sulfate (Morphine Sulfate 2 Mg/Ml Carp) 2 mg IV NOW STA Stop: 09/25/25 15:57 Last Admin: 09/25/25 16:22 Dose: 2 mg Documented By: eli Ondansetron HCl (Ondansetron Inj 2 Mg/Ml 2 Ml Vial) 4 mg IV NOW STA Stop: 09/25/25 10:02 Last Admin: 09/25/25 10:22 Dose: 4 mg Documented By: SEE Ondansetron HCl (Ondansetron Inj 2 Mg/Ml 2 Ml Vial) 4 mg IV Q6H PRN PRN Reason: Nausea Stop: 10/25/25 15:55 Last Admin: 09/26/25 06:58 Dose: 4 mg Documented By: Admin: 09/25/25 18:59 Dose: 4 mg Documented By: GEOFF Polyethylene Glycol (Polyethylene (Miralax) 17 Gm Pack) 17 gm PO DAILY PRN PRN Reason: Constipation Stop: 10/25/25 15:55 Last Admin: 09/26/25 08:30 Dose: 17 gm Documented By: SANTIAGO Potassium Chloride (Potassium Chloride Crtab 20 Meq Tabcr) 40 meq PO NOW STA Stop: 09/26/25 12:47 Last Admin: 09/26/25 14:05 Dose: 40 meq Documented By: SANTIAGO Imaging Data Radiologist's Impression: Abdomen/Pelvis CT 09/25/25 12:[address] WITH IV CONTRAST CT DOSE: 1315.62 mGy.cm HISTORY: Acute bilateral flank pain eval for stone TECHNIQUE: Multiaxial CT images of the abdomen and pelvis were performed following the IV administration of 94 cc of Optiray, A dose lowering technique was utilized adhering to the principles of ALARA. COMPARISON STUDY: CT abdomen and pelvis 09/17/2025 FINDINGS: The lung bases are clear. Cholecystectomy The liver, spleen, pancreas, kidneys, and adrenal glands are within normal limits. No bowel wall thickening or obstruction. Normal appendix. An IUD appears to be in appropriate positioning. Dropped surgical clip within the anterior lower pelvis. A midline 1.1 cm cystic focus is noted inferior to the urinary bladder, image 317. Urethral diverticulum is a differential consideration. No suspicious lytic or blastic osseous lesions. IMPRESSION: 1. No acute intra-abdominal or intrapelvic abnormality identified. 2. Normal appendix. 3. No hydronephrosis. 4. 1.1 cm urethral diverticulum versus vaginal cyst. ACT 112: Negative or not required by law. The above report was generated using voice recognition software. It may contain grammatical, syntax or spelling errors. Electronically signed by: Kar Logan M.D. 09/25/2025 1:09 PM Discharge Plan Visit Data Chief Complaint: Abdominal Pain Stated Complaint: SEVERE ABD PAIN ALL OVER/VOMITING ED Provider: Javy Pierre Discharge Problem: Cyclic vomiting syndrome, Viral illness, Intractable abdominal pain, Intractable nausea and vomiting Patient Disposition: Admitted As Inpatient Condition: Good Discharge Instructions Interventions: ED Discharge Assessment Last Done: 09/25/25 20:47
[2025-09-25] MEDS: OPTIRAY 320 100ml IV ONE (12:44)
--- NOTE | 2025-09-25 13:12 | CT Scan Report ---
ABDOMEN AND PELVIS CT WITH IV CONTRAST CT DOSE: 1315.62 mGy.cm HISTORY: Acute bilateral flank pain eval for stone TECHNIQUE: Multiaxial CT images of the abdomen and pelvis were performed following the IV administrat ion of 94 cc of Optiray, A dose lowering technique was utilized adhering to the principles of ALARA. COMPARISON STUDY: CT abdomen and pelvis 09/17/2025 FINDINGS: The lung bases are clear. Cholecystectomy The liver, spleen, pancreas, kidneys, and adrenal glands are within normal limits. No bowel wall thickening or obstruction. Normal appendix. An IUD ap pears to be in appropriate positioning. Dropped surgical clip within the anterior lower pelvis. A mid line 1.1 cm cystic focus is noted inferior to the urinary bladder, image 317. Urethral diverticulum i s a differential consideration. No suspicious lytic or blastic osseous lesions. IMPRESSION: 1. No acute intra-abdominal or intrapelvic abnormality identified. 2. Normal appendix. 3. No hydronephrosis. 4. 1.1 cm urethral diverticulum versus vaginal cyst. ACT 112: Negative or not required by law. The above report was generated using voice recognition software. It may contain grammatical, syntax o r spelling errors. Electronically signed by: Kar Logan M.D. 09/25/2025 1:09 PM
[2025-09-25 13:33] LABS: Appearance Urine Clear (Clear); Bacteria Urine Automated 2+ (None Seen); Cast Urine Automated 0-2 /lpf (0-2); Glucose Urine UA Negative (Negative); RBC Urine Automated 0-2 /hpf (0-2); WBC Urine Automated 0-5 /hpf (0-5)
--- NOTE | 2025-09-25 14:36 | Electrocardiogram Report ---
Test Reason : Blood Pressure : */* mmHG Vent. Rate : 76 BPM Atrial Rate : 76 BPM P-R Int : 98 ms QRS Dur : 86 ms QT Int : 384 ms P-R-T Axes : 26 42 14 degrees QTcB Int : 432 ms Sinus rhythm with short IL with Premature supraventricular complexes Otherwise normal ECG When compared with ECG of 11-May-2024 12:10, Premature supraventricular complexes are now Present Confirmed by Eusebio Silva ([id number]) on 09/25/2025 2:36:44 PM Referred By: Confirmed By: Eusebio Silva
[2025-09-25] MEDS ORDERED: ALUMINUM/MAGNESIUM SUSP 30 ML UDC PO PRN (15:56)
[2025-09-25] MEDS ORDERED: MELATONIN 3 MG TAB PO PRN (15:56)
[2025-09-25] MEDS ORDERED: MAGNESIUM HYDROXIDE SUSP 30 ML UDC PO PRN (15:56)
[2025-09-25] MEDS: MoRPHine SULFATE 2 MG/ML CARP IV STA (16:22)
[2025-09-25] MEDS: METOCLOPRAMIDE HCL INJ 5 MG/ML 2 ML VIAL IV SCH (16:57)
[2025-09-25] MEDS: SODIUM CHLORIDE 0.9% 1,000 ML IV SCH (16:57)
--- NOTE | 2025-09-25 18:24 | History & Physical Report ---
Date of Service September 25, 2025 Assessment & Plan (1) Vomiting: (2) Diarrhea: (3) Abdominal pain: (4) Cyclic vomiting syndrome: Plan 20 year old female with PMH significant for umbilical hernia, gallstones, nephrolithiasis, morbid obesity, cholelithiasis (s/p lap sherman), cyclic vomiting syndrome, presence of IUD presents with c/o n/v/d and diffuse abdominal discomfort that started at 5am on 09/25/25. She presented to the emergency department for intractable nausea primarily. She recently was diagnosed with umbilical hernia and is slated to have upcoming surgery for this diagnosis. ED course of treatment revealed mild leukocytosis at 14.75, slight elevation in platelets at 421, UA with no overt clinical signs of infection (she denies LUTS), and CTAP with no acute intra-abdominal or intrapelvic abnormality (1.1cm urethral diverticulum vs vaginal cyst). 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 (she follows with urology secondary to hx of nephrolithiasis) Reglan 10mg IV Q6H NSS 125ml/hr Protonix 40mg IV daily (GERD vs PUD?) H/H without decrease-->no hx of ETOH, NSAID, aspirin use/denies hematochezia, hematemesis, melena, no exquisite e pigastric tenderness on exam clear liquids collect stool for Biofire, Cdiff ##cyclic vomiting syndrome amitriptyline at hs for hx of CVS Reglan 10mg IV Q6H ##leukocytosis possibly relational to vomiting/stress UA without overt signs of infection, add on UC CBC am DVT prophylaxis: low risk, up ad winston Diet: CL Disposition: observation admission to med/surg History of Present Illness Chief Complaint: Nausea/ vomiting, abdominal pain, diarrhea Primary Care Provider: Tin Ponce MD Patient is a 20-year-old female that presented to [facility] emergency department with complaints of nausea, vomiting, diarrhea, and diffuse abdominal pain that started suddenly this morning at 5 AM. Her mother and grandmother are at the bedside at the time of her assessment. She had two episodes of diarrhea prior to arrival in the emergency department with production of loose, watery diarrhea that was small in amount. She has had intractable nausea at home with emesis. Denies hematochezia, melena or hematemesis. Reports her abdominal pain is primarily in the middle of her abdominal area and is intermittent with burning consistency. She does endorse that she has been having some abdominal pain that comes and goes for quite some time and she is currently following with [facility] general surgery secondary to diagnosis of umbilical hernia. She is scheduled to have surgery done on 10/17/24. States she has been exposed to her brother and mother who recently had a viral GI illness. She denies fever or chills. She does have a history of cyclic vomiting syndrome and follows with Yasmin Sanchez with [facility] gastroenterology. She is currently taking Amitriptyline and prn Zofran secondary to this diagnosis. States her nausea has improved with droperidol dosing in the emergency department. Still with c/o abdominal pain that is cramping/burning in nature. She denies substance abuse or alcohol use. Allergies Allergy/AdvReac Type Severity Reaction Status Date / Time nickel Allergy Intermediate skin Verified 09/04/25 13:23 irritation Home Medications Medication Instructions Recorded Confirmed Type diphenhydramine HCl 25 mg capsule 25 mg PO DAILY PRN Allergy Symptoms 12/13/23 09/25/25 History (Benadryl) levonorgestrel 17.5 mcg/24 hr (up 1 device intrauterine DIRECTED 05/09/24 09/25/25 History to 5 yrs) 19.5mg intrauterine device (Kyleena) amitriptyline 25 mg tablet 75 mg PO HS 09/05/24 09/25/25 History Medical Marijuana 1 dose inhalation UD PRN Anxiety 09/29/24 09/25/25 History albuterol sulfate 90 mcg/actuation 2 puff inhalation Q6H PRN 10/26/24 09/25/25 Rx aerosol inhaler shortness of breath or wheezing #8.5 grams ondansetron 8 mg disintegrating 8 mg PO Q8H PRN nausea and 08/01/25 09/25/25 Rx tablet vomiting #30 tabs Past Med/Surg History Problem List (Updated 09/17/25 @ 15:44 by Deniz eYe DO) Vomiting (Acute) Diarrhea (Acute) Abdominal pain (Acute) Umbilical hernia Lower urinary tract symptoms (LUTS) (Acute) Hemorrhoids Thyroid nodule Abnormal thyroid blood test High serum cortisol Encounter for IUD insertion Dysmenorrhea Post-op pain Right upper quadrant abdominal pain (Acute) Gallstones Nephrolithiasis (Chronic) Seizure-like activity Seizure-like activity + LOC episode 05/07/23, unknown etiology (did not got to hospital, reportedly lasted approximately 15 seconds. Patient states she notified PCP/had office visit 05/12/23 in which patient was referred to [facility] neurology (appt not done yet) Cholelithiasis (Acute) Morbid obesity Viral upper respiratory infection (Acute) Upper respiratory infection (Acute) Diarrhea in pediatric patient (Acute) Diarrhea (Acute) Cough (Acute) Contusion of foot (Acute) Constipation (Acute) Blood on toilet paper (Acute) Abdominal pain in female patient (Acute) ADD (attention deficit disorder) (Chronic) ADHD (attention deficit hyperactivity disorder) (Chronic) Medical History (Updated 09/17/25 @ 15:44 by Deniz Yee DO) Encounter for pre-operative examination Kidney stone Cyclic vomiting syndrome Nausea and vomiting after administration of anesthetic agent after ACL sx only ADHD (attention deficit hyperactivity disorder) no meds currently Hx of bronchitis dx mid September 2024, tx w/abx and OTC meds; cough lingering currently (as of 11/03/24) Seizure-like activity Seizure-like activity + LOC episode 05/07/23, unknown etiology (did not got to hospital, reportedly lasted approximately 15 seconds. Patient states she notified PCP/had office visit 05/12/23 in which patient was referred to [facility] neurology > "cleared by the dr, no recurrence of symptoms" IUD (intrauterine device) in place Ovarian cyst right side, current History of renal stone Depression Constipation "just a little bit" Stress incontinence, female PMS (premenstrual syndrome) resolved w/kyleena Nocturnal enuresis Insomnia Gastroenteritis "sort of ongoing process" Alopecia Allergic rhinitis Adjustment disorder with depressed mood Exercise-induced asthma inh prn History of COVID-19 Fall 2021 04/2022- sore throat, chest tightness, resolved Surgical History (Updated 07/26/25 @ 08:39 by Mk He PA-C) Hx laparoscopic cholecystectomy (08/04/23) Laparoscopic Cholecystectomy(Not Applicable) - Garcia Stout, H/O adenoidectomy Hx laparoscopic cholecystectomy Laparoscopic Cholecystectomy(Not Applicable) - Garcia Stout, History of esophagogastroduodenoscopy (EGD) EGD (04/28/23): MAC at [facility] History of arthroscopy of left knee 05/2022, w/ACL reconstruction S/P cystoscopy with ureteral stent placement Cystoscopy, left ureteroscopy, stent (04/07/23): LMA#4 igel at [facility] H/O wisdom tooth extraction History of tonsillectomy and adenoidectomy H/O of nasal cauterization age 3 Family History Grandmother (Maternal) Breast cancer Cancer Grandfather (Maternal) Cancer Other No family history of adverse response to anesthesia Social History Smoking Status: Current every day smoker Tobacco Type: E-cigarettes / Vaping Cigarettes Per Day: vapes daily (advised on policy); Second Hand Exposure: Yes (hx growing up); Do You Dip or Chew Tobacco: No; Tobacco Cessation Education Requested by Patient: No Hx Alcohol Use: Yes Alcohol type: hard liquor Hx Substance Use: No Preferred Language: Ugandan Communication Ability: Effective Visual Impairment: No Limitations Security Orderly Required: No Beliefs That Will Affect Care: None Current Living Situation: Family Other Information That Helps Us Care for You: No Feels Safe at Home: Yes Safety Concerns: Feels Safe At This Time Assistive Devices: Glasses Review of Systems Review of Systems: All systems reviewed & are unremarkable except as noted in Subjective Physical Exam Physical Exam: GENERAL APPEARANCE: A&O. Sitting comfortably on stretcher. NAD. SKIN: Normal color without rashes or lesions. Normal turgor. HEENT: Head AT/NC. Buccal mucosa is moist and pink. NECK: No jugular venous distention. No thyroid enlargement. There is no lymphadenopathy. HEART: RRR without m/g/r LUNGS: Normal inspiratory effort. CTA without w/r/r ABDOMEN: No guarding or rigidity. Normoactive BS in all four quadrants. Abdomen soft, mildly tender to epigastric and mid abdominal area. MSK: No bony gross/deformities throughout. ROM intact. EXTREMITIES: No edema, No peripheral cyanosis. Neuro: CN 2-12 grossly intact. No focal neuro deficits PSYCHIATRIC: Normal affect. Eye contact is good. Speech is normal rate and content. Responses are appropriate. Results & Data Results & Data Vital Signs (Past 12 Hours) Vital Signs Temp Pulse Pulse Resp BP BP Pulse Ox 09/25/25 17:00 74 29 H 137/76 98 09/25/25 16:45 91 H 32 H 134/75 09/25/25 16:30 71 31 H 134/80 09/25/25 16:15 107 H 12 103/76 09/25/25 16:03 77 12 118/67 09/25/25 15:45 81 16 130/85 99 09/25/25 15:30 130/71 09/25/25 15:30 76 35 H 130/71 98 09/25/25 15:15 67 24 129/78 99 09/25/25 15:00 104 H 28 H 104/75 100 09/25/25 14:49 73 09/25/25 14:45 75 28 H 115/71 98 09/25/25 14:42 74 31 H 99 09/25/25 14:33 74 12 120/85 95 09/25/25 13:30 85 21 134/80 100 09/25/25 13:18 74 24 130/82 99 09/25/25 13:17 75 24 130/82 99 09/25/25 12:30 116/76 09/25/25 12:30 73 25 H 116/76 98 09/25/25 12:23 118/55 L 09/25/25 12:22 98/52 L 09/25/25 12:21 101/48 L 09/25/25 12:15 104 H 24 143/66 H 99 09/25/25 12:00 83 26 H 114/71 100 09/25/25 11:45 71 21 109/80 100 09/25/25 11:30 56 L 19 103/63 98 09/25/25 11:22 125/61 09/25/25 11:12 70 18 107/75 99 09/25/25 10:46 81 09/25/25 09:47 36.5 C 95 H 16 114/80 97 O2 Del Method 09/25/25 17:00 Room Air 09/25/25 16:45 09/25/25 16:30 09/25/25 16:15 09/25/25 16:03 09/25/25 15:45 Room Air 09/25/25 15:30 09/25/25 15:30 Room Air 09/25/25 15:15 Room Air 09/25/25 15:00 Room Air 09/25/25 14:49 09/25/25 14:45 Room Air 09/25/25 14:42 Room Air 09/25/25 14:33 Room Air 09/25/25 13:30 Room Air 09/25/25 13:18 Room Air 09/25/25 13:17 Room Air 09/25/25 12:30 09/25/25 12:30 Room Air 09/25/25 12:23 09/25/25 12:22 09/25/25 12:21 09/25/25 12:15 Room Air 09/25/25 12:00 Room Air 09/25/25 11:45 Room Air 09/25/25 11:30 Room Air 09/25/25 11:22 09/25/25 11:12 Room Air 09/25/25 10:46 09/25/25 09:47 Room Air Laboratory Results Labs reviewed: CBC, BMP, UA, urine Code Status & VTE Plan VTE Prophylaxis Plan VTE Prophylaxis will be ordered: Yes Supervising Physician Co-Signing Physician Notes The patient was seen by me. The chart was reviewed. Case discussed with TIM Ruby. Agree with assessment and plan. PG Care Time/CCT Total # of Minutes Spent Total Time Spent with Patient: Total time spent is greater than 50% in coordination of care (as documented) at patient's floor/unit and/or counseling patient: Coding Level of Care Code 82557 INT INP/OBS CARE 2/55MIN Diagnoses Vomiting R11.10 Nausea presence: unspecified Vomiting type: unspecified Diarrhea R19.7 Diarrhea type: unspecified type Abdominal pain R10.9 Abdominal location: unspecified location Cyclic vomiting syndrome R11.15 (1) Vomiting Nausea presence: unspecified Vomiting type: unspecified Qualified Code(s): R11.10 - Vomiting, unspecified (2) Diarrhea Diarrhea type: unspecified type Qualified Code(s): R19.7 - Diarrhea, unspecified (3) Abdominal pain Abdominal location: unspecified location Qualified Code(s): R10.9 - Unspecified abdominal pain
[2025-09-25] MEDS: PANTOprazole 40 MG/10 ML SYR IV SCH (18:42)
[2025-09-25] MEDS: ONDANSETRON INJ 2 MG/ML 2 ML VIAL IV PRN (18:59)
[2025-09-25] MEDS: AMITRIPTYLINE HCL 25 MG TAB PO SCH (22:32)
[2025-09-25 22:42] VITALS: RESP 16
[2025-09-25] MEDS: FAMOTIDINE 20MG IV PUSH 20 MG/5 ML SYR IV STA (23:18)
[2025-09-26] MEDS: ACETAMINOPHEN 325 MG TAB PO PRN (04:50)
[2025-09-26] MEDS: POLYETHYLENE (MIRALAX) 17 GM PACK PO PRN (08:30)
[2025-09-26 09:58] LABS: Hematocrit (blood only) 36.3 % (37.0-47.0); Hemoglobin 12.4 g/dL (12.0-16.0); Immature Granulocytes # (auto) 0.04 K/uL (0.01-0.20); Immature Granulocytes % (auto) 0.4 %; Mean Corpuscular Hemoglobin 28.1 pg (25.0-34.0); Mean Corpuscular Volume 82.1 fL (80.0-100.0); Platelet Count 370 K/uL (130-400); RDW Standard Deviation 37.8 fL (36.4-46.3); Red Blood Count 4.42 M/uL (4.20-5.40); White Blood Count 11.36 K/ul (4.8-10.8)
[2025-09-26 10:11] LABS: Anion Gap 9.0 (3-11); Blood Urea Nitrogen 6.0 mg/dl (6-23); Calcium 9.1 mg/dl (8.6-10.3); Carbon Dioxide 22.0 mmol/L (21-32); Chloride 107.0 mmol/L (98-107); Creatinine Clr Calc Pharmacy 137.6 ml/min; Glucose 101.0 mg/dl (70-99(Fasting)); Potassium 3.1 mmol/L (3.5-5.1); Sodium 138.0 mmol/L (136-145)
[2025-09-26 11:47] LABS: Cdiff Toxin B Gene (2yr or >) Negative Cdiff Gene (Neg)
[2025-09-26 12:16] LABS: Adenovirus F 40/41 PCR Not Detected (NotDetected); Campylobacter PCR Not Detected (NotDetected); Enteroaggregative E.coli(EAEC) Not Detected (NotDetected); Shiga-like Toxin E.coli (STEC) Not Detected (NotDetected); Vibrio species PCR Not Detected (NotDetected)
[2025-09-26 12:29] VITALS: TEMP 99; O2SAT 97
[2025-09-26] MEDS: POTASSIUM CHLORIDE CRTAB 20 MEQ TABCR PO STA (14:05)
[2025-09-26 15:19] VITALS: BP 104/65; PULSE 116
--- NOTE | 2025-09-26 16:47 | Discharge Summary ---
Discharge Summary Date of Service September 26, 2025 Principal Dx & Hospital Course #1 = Principal Diagnosis (1) Vomiting: (2) Diarrhea: (3) Abdominal pain: (4) Cyclic vomiting syndrome: Plan 20 year old female with PMH significant for umbilical hernia, gallstones, nephrolithiasis, morbid obesity, cholelithiasis (s/p lap sherman), cyclic vomiting syndrome, presence of IUD presents with c/o n/v/d and diffuse abdominal discomfort that started at 5am on 09/25/25. She presented to the emergency department for intractable nausea primarily. She recently was diagnosed with umbilical hernia and is slated to have upcoming surgery for this diagnosis. ED course of treatment revealed mild leukocytosis at 14.75, slight elevation in platelets at 421, UA with no overt clinical signs of infection (she denies LUTS), and CTAP with no acute intra-abdominal or intrapelvic abnormality (1.1cm urethral diverticulum vs vaginal cyst). Patient walking catalan when seen this afternoon. Nausea/abdominal pain has completely resolved. She has tolerated clear liquids with no emesis. She has a few small BMs with no watery diarrhea. She states she would like to be discharged. Biofire of stool with positive Norovirus as possible correlation to symptoms. 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 Sourav John with [facility]) Reglan 10mg IV Q6H NSS 125ml/hr Protonix 40mg IV discontinued as she states dose last evening produced more stomach burning, administered IV Pepcid and burning subsided, reports she takes at home and will resume on d/c tolerated clear liquids without emesis neg Cdiff, +norovirus on stool biofire ##hypokalemia K 3.1 this am repleted with KCL 40meq po prior to discharge ##cyclic vomiting syndrome amitriptyline at hs for hx of CVS Reglan 10mg IV Q6H effective in managing nausea/vomiting with ability to tolerate clear liquids ##leukocytosis possibly relational to vomiting/stress UA without overt signs of infection, add on UC still pending at d/c WBC downtrended on d/c procal neg DVT prophylaxis: low risk, up ad winston Diet: CL Disposition: observation admission to med/surg Notes For Next Care Provider K 3.1 on discharge from hospital, consider repeat BMP for follow up Medication Changes From Visit None Admission HPI Per Admitting Provider Patient is a 20-year-old female that presented to [facility] emergency department with complaints of nausea, vomiting, diarrhea, and diffuse abdominal pain that started suddenly this morning at 5 AM. Her mother and grandmother are at the bedside at the time of her assessment. She had two episodes of diarrhea prior to arrival in the emergency department with production of loose, watery diarrhea that was small in amount. She has had intractable nausea at home with emesis. Denies hematochezia, melena or hematemesis. Reports her abdominal pain is primarily in the middle of her abdominal area and is intermittent with burning consistency. She does endorse that she has been having some abdominal pain that comes and goes for quite some time and she is currently following with [facility] general surgery secondary to diagnosis of umbilical hernia. She is scheduled to have surgery done on 10/17/24. States she has been exposed to her brother and mother who recently had a viral GI illness. She denies fever or chills. She does have a history of cyclic vomiting syndrome and follows with Yasmin Sanchez with [facility] gastroenterology. She is currently taking Amitriptyline and prn Zofran secondary to this diagnosis. States her nausea has improved with droperidol dosing in the emergency department. Still with c/o abdominal pain that is cramping/burning in nature. She denies substance abuse or alcohol use. Discharge Exam GENERAL APPEARANCE: A&O. Walking in hallway. NAD. SKIN: Normal color without rashes or lesions. Normal turgor. HEENT: Head AT/NC. Buccal mucosa is moist and pink. HEART: RRR without m/g/r. LUNGS: Normal inspiratory effort. CTA without w/r/r ABDOMEN: No guarding or rigidity. Normoactive BS in all four quadrants. No TTP in abdominal area. Discharge Plan Discharge Items Patient Disposition: Home - Self-Care Reason For Visit: NAUSEA/VOMITING, ABD PAIN, DIARRHEA Discharge Diagnosis: Norovirus Condition on Discharge: Good Activity: Resume your previous activity Bathing: No limitations Weightbearing: Full weightbearing Non-emergency contact: Primary Care Provider Call non-emergency contact if: you have any medication questions, your symptoms worsen and your pain is not controlled Follow-up/Referrals: Tin Ponce MD [Primary Care Provider] - 10/04/25 9:25 am (Follow up within one week of discharge) Sourav John MD [Physician] - (Please call for an appointment) Diet: Regular Addtl Attending Provider Instructions: Gertrude, You were admitted to the hospital for nausea, vomiting and diarrhea. You also had abdominal discomfort that has fully resolved. You were given IV fluids and medication to help your nausea called Reglan every 6 hours. Through a stool test it was identified you have norovirus which is a self-limiting gastrointestinal illness. Your potassium level was slightly decreased and you were given oral potassium to supplement. Please engage in a diet rich in potassium on discharge as you may still have some diarrhea from the norovirus and it is important your potassium levels are maintained if you have some loss. Bananas, dairy products, broccoli and potatoes are all good foods to consume. It is extremely important you hydrate yourself adequately upon discharge with appropriate electrolyte fluids. Pedialyte is a good option that you can purchase over the counter. You relayed you already have antinausea medication to take at home if you are nauseous. The CT scan you had done of you abdomen and pelvis showed you have a urethral diverticulum or a possible vaginal cyst. This imaging was discussed with the urology team as you area already an established patient with [facility] urology and the team is recommending you see a urogynecologist for evaluation. The closest provider in the area is Dr. Sourav John at [facility] and his contact information has been provided to you so you can secure an appointment. Medications: Your medication list has been reviewed and reconciled upon discharge to ensure accuracy and continuity of care. An updated list of all your medications is included with your hospital discharge paperwork. Please review this list closely, and make note of any changes. Take your medications as instructed; do not skip a dose of your medicines. Make sure all of your doctors know every medicine you are taking (including [id number]-psj-[id number] medicines, vitamins, and supplements). Call your primary care provider before taking any new medicines (including over- the-counter medicines, vitamins, and supplements), because some of these may interact with your current medications, or may make your symptoms worse. Tell your primary care provider if you cannot afford your medications. Activity: You can do normal everyday activities as your body allows. Take rest breaks if you feel tired. Do not overexert. Stop activity if you have pain, shortness of breath or feel dizzy. Follow-up appointments: Make an appointment with your primary care physician within one week of discharge. A copy of this summary will be sent to them. Every time you see your primary care physician, or any other doctor, bring your medication list, and a list of questions. CONTACT YOUR PRIMARY CARE PROVIDER if you experience any of the following: Shortness of breath or difficulty breathing Fevers or chills Feeling tired with normal activity or experiencing dizziness or fainting Difficulty following your treatment plan, or difficulty taking medications CALL 911 OR GO TO THE EMERGENCY DEPARTMENT if you experience any of the following: Severe abdominal pain or nausea/vomiting Severe chest pain, or chest pain that radiates (moves) to your jaw or arm Sudden, severe shortness of breath or difficulty breathing Thank you for allowing us to participate in your care. Pending Studies at Discharge: Yes Studies:: urine culture Stand-Alone Forms: My [employer], Work/School Release, Smoking Cessation Medications and DC Order Prescriptions: Continued albuterol sulfate 90 mcg/actuation HFA aerosol inhaler 2 puff inhalation Q6H PRN (Reason: shortness of breath or wheezing) Qty: 8.5 0RF ondansetron 8 mg tablet,disintegrating 8 mg PO Q8H PRN (Reason: nausea and vomiting) Qty: 30 11RF diphenhydramine HCl [Benadryl] 25 mg Capsule 25 mg PO DAILY PRN (Reason: Allergy Symptoms) Kyleena 17.5 mcg/24 hr (5 yrs) 19.5 mg intrauterine device 1 device INTRAUTERINE DIRECTED amitriptyline 25 mg tablet 75 mg PO HS Medical Marijuana 1 dose inhalation UD PRN (Reason: Anxiety) Patient Comments: sublingual and flower Discharge Orders: Discharge Order (Routine); Ordered 09/26/25 Ordered By: Demi Martínez/Other Patient Handouts: Understanding Norovirus Admission Data Admit Date/Time: 09/25/25 15:56 Attending Provider: Keyshawn Workman Admit Provider: Keyshawn Workman Primary Care Provider: Tin Ponce Other Providers: Keyshawn Workman Other Interventions: Discharge Summary Assessment (RN) Last Done: 09/26/25 15:18 Hospital Stay Data Consultations 09/25/25 18:32 ED Decision to Admit Stat Diagnostic Imagining Performed 09/25/25 12:04 CT abd pelvis IV con only Stat Pending Results Patient Have Any Pending Studies at Discharge: Yes Discharge Instructions Given to Patient (Per Discharging Provider) Gertrude, You were admitted to the hospital for nausea, vomiting and diarrhea. You also had abdominal discomfort that has fully resolved. You were given IV fluids and medication to help your nausea called Reglan every 6 hours. Through a stool test it was identified you have norovirus which is a self-limiting gastrointestinal illness. Your potassium level was slightly decreased and you were given oral potassium to supplement. Please engage in a diet rich in potassium on discharge as you may still have some diarrhea from the norovirus and it is important your potassium levels are maintained if you have some loss. Bananas, dairy products, broccoli and potatoes are all good foods to consume. It is extremely important you hydrate yourself adequately upon discharge with appropriate electrolyte fluids. Pedialyte is a good option that you can purchase over the counter. You relayed you already have antinausea medication to take at home if you are nauseous. The CT scan you had done of you abdomen and pelvis showed you have a urethral diverticulum or a possible vaginal cyst. This imaging was discussed with the urology team as you area already an established patient with [facility] urology and the team is recommending you see a urogynecologist for evaluation. The closest provider in the area is Dr. Sourav John at [facility] and his contact information has been provided to you so you can secure an appointment. Medications: Your medication list has been reviewed and reconciled upon discharge to ensure accuracy and continuity of care. An updated list of all your medications is included with your hospital discharge paperwork. Please review this list closely, and make note of any changes. Take your medications as instructed; do not skip a dose of your medicines. Make sure all of your doctors know every medicine you are taking (including [id number] medicines, vitamins, and supplements). Call your primary care provider before taking any new medicines (including over- the-counter medicines, vitamins, and supplements), because some of these may interact with your current medications, or may make your symptoms worse. Tell your primary care provider if you cannot afford your medications. Activity: You can do normal everyday activities as your body allows. Take rest breaks if you feel tired. Do not overexert. Stop activity if you have pain, shortness of breath or feel dizzy. Follow-up appointments: Make an appointment with your primary care physician within one week of discharge. A copy of this summary will be sent to them. Every time you see your primary care physician, or any other doctor, bring your medication list, and a list of questions. CONTACT YOUR PRIMARY CARE PROVIDER if you experience any of the following: Shortness of breath or difficulty breathing Fevers or chills Feeling tired with normal activity or experiencing dizziness or fainting Difficulty following your treatment plan, or difficulty taking medications CALL 911 OR GO TO THE EMERGENCY DEPARTMENT if you experience any of the following: Severe abdominal pain or nausea/vomiting Severe chest pain, or chest pain that radiates (moves) to your jaw or arm Sudden, severe shortness of breath or difficulty breathing Thank you for allowing us to participate in your care. Supervising Physician Co-Signing Physician Notes The patient was not seen by me. The chart was reviewed. Case discussed with TIM Ruby. Agree with assessment and plan. Total Time Total Time Spent Total Time Spent (In Minutes): 40 minutes total on d/c Coding Level of Care Code 93956 INP/OBS DISCH >30 MIN Diagnoses Vomiting R11.10 Nausea presence: unspecified Vomiting type: unspecified Diarrhea R19.7 Diarrhea type: unspecified type Abdominal pain R10.9 Abdominal location: unspecified location Cyclic vomiting syndrome R11.15
== END 2025-09-26 16:18 | disposition home or self-care (01) ==
LOC: ED 09:33 → EDINP 09:33 → 3E 20:47
DX: R11.2 Nausea with vomiting, unspecified; D72.829 Elevated white blood cell count, unspecified; R11.15 Cyclical vomiting syndrome unrelated to migraine; R19.7 Diarrhea, unspecified; Z79.899 Other long term (current) drug therapy; F17.290 Nicotine dependence, other tobacco product, uncomplicated; R10.84 Generalized abdominal pain; Z91.048 Other nonmedicinal substance allergy status; Z86.718 Personal history of other venous thrombosis and embolism